=== PATIENT | female | born 1945 | race Caucasian/White ===

== ENCOUNTER 2024-07-04 08:01 | Inpatient (IN) | payer MEDICARE, SELFPAY ==
[2024-07-04] VITALS (23 sets, daily range): BP systolic 116–147; BP diastolic 44–85; PULSE 60–82; RESP 14–20; TEMP 36.4–37.1; O2SAT 92–100; BMI 27.5
--- NOTE | ~2024-07-04 | CT_ITS ---
CT brain wo con Ordering provider: Jevon Phillips III DO History: 79 years Female with . fall . Comparison: None. Technique: CT of the head without contrast. Radiation reduction technique utilized.The dose-length pr oduct was 605.33 mGy-cm. FINDINGS: BRAIN PARENCHYMA AND CSF SPACES: Left frontal encephalomalacia. No midline shift, mass effect or hemo rrhage. The brain parenchyma and CSF spaces are otherwise normal. Empty sella turcica. VISUALIZED PARANASAL SINUSES: Well aerated. MASTOIDS: Well aerated. BONES: Postoperative changes in the left frontal bone. Otherwise, The bones appear intact. SOFT TISSUES: Visualized nasopharynx is normal. Superficial soft tissues are normal. IMPRESSION: No acute intracranial findings. Reviewed, dictated and finalized at location A.
--- NOTE | ~2024-07-04 | CT_ITS ---
CT chest abdomen pelvis w con Ordering provider: Jevon Phillips III, DO History: . trauma . Comparison: None. Technique: CT chest, abdomen and pelvis with IV contrast only. Radiation reduction technique utilized .The dose-length product was 1203.89 mGy-cm. 100 mL Omnipaque 350 was given IV. FINDINGS: CHEST: --VISUALIZED THORACIC INLET: Normal. --MEDIASTINUM: Aorta/coronary arteries: Mild atheromatous disease. Heart/other: The heart is not enlarged. Lymph nodes: No mediastinal or hilar adenopathy. Precarinal lymph node measuring 2.2 x 0.8 cm is note d. Hilar lymph node is seen measuring 1.1 x 1.5 cm. --LUNGS: 2 nodules measuring 5 mm are seen in the right upper lobe area. 6 mm nodule in the left lowe r lobe is also noted. 4 mm nodule is seen in the left upper lobe. 6 mm nodule is seen in the lingula. 6 months follow-up CT is advised atelectatic changes seen in the middle lobe. Dependent atelectasis seen in the lower lobes more on the right side. No pulmonary masses. No infiltrates or effusions. No pneumothorax. --MUSCULOSKELETAL: Soft tissues: The superficial soft tissues are normal. Bones: Fracture of the right eighth, ninth, 10th and 11th ribs. Age appropriate degenerative changes of the spine. ABDOMEN/PELVIS: --MUSCULOSKELETAL: Bones: No acute fracture. Age appropriate degenerative changes of the spine. Superficial soft tissues: The superficial soft tissues are normal. --UPPER ABDOMINAL ORGANS: Liver: Normal. Lymph nodes are seen in the the amrita hepatis area and the largest measures 2.9 X 1.3x 3.5 CM. OTHER LYMPH NODES ARE SEEN IN MEASURING 2 cm AND 1.8 cm. Gallbladder: Not demonstrated most likely surgically removed. Spleen: Normal. Stomach/duodenum: Sliding hiatus hernia. Pancreas: Normal. Adrenals: The left adrenal gland is not seen most likely surgically removed.r possible fat-containing lesion in the right adrenal is not excluded measuring 1.3 cm. Tiny right adrenal adenoma is seen. Kidneys: Left kidney cyst is noted measuring 1.8 cm. --PELVIC ORGANS: The bladder is underfilled with thickened wall. --BOWEL AND MESENTERY: Colon: No evidence of diverticulitis. Presacral fat stranding is seen which may indicate proctitis. C linical correlation advised.. Appendix is not demonstrated. Small Bowel: Normal. No obstruction. Peritoneum/mesentery: No free air or free fluid. No mesenteric lymphadenopathy. --RETROPERITONEUM: Mild atheromatous disease of the abdominal aorta. No retroperitoneal hemorrhage o r aortic trauma. No retroperitoneal lymphadenopathy or retroperitoneal hemorrhage. IMPRESSION: CHEST: 1. No evidence of vascular injury seen. 2. No acute cardiopulmonary pathology. 3. Bilateral multiple nodules. 6 months follow-up CT advised. 4. Precarinal and right hilar lymph nodes. 5. Fracture of the right eighth, ninth, 10th and 11th ribs. ABDOMEN/PELVIS: 1. No evidence of solid organ injury seen. 2. No evidence of appendicitis, diverticulitis or intestinal obstruction. 3. Amrita hepatis lymphadenopathy. Reviewed, dictated and finalized at location A.
--- NOTE | ~2024-07-04 | XR_ITS ---
XR chest 2V Ordering provider: Jevon Phillips III, DO History: 79 years Female with . dizziness . Comparison: None. FINDINGS: MEDIASTINUM: The cardiac silhouette is not enlarged. LUNGS: No infiltrates, effusions or pneumothorax. Blunting of the posterior costophrenic angle on the right side which may indicate effusion or fibrotic changes. OTHER: No free air under the diaphragm. Degenerative changes of the spine. IMPRESSION: No acute cardiopulmonary pathology. Blunting of the posterior costophrenic angle on the right side which may be due to minimal effusion o r fibrotic changes. Reviewed, dictated and finalized at location A. IMPRESSION: No acute cardiopulmonary pathology. Blunting of the posterior costophrenic angle on the right side which may be due to minimal effusion or fibrotic changes.
--- NOTE | ~2024-07-04 | XR_ITS ---
EXAMINATION: XR chest 1V portable DATE: 07/05/2024 07:44 INDICATION: Rib fracture TECHNIQUE: frontal view of the chest was obtained. COMPARISON: Chest radiograph dated 07/04/2024 FINDINGS: Unchanged elevation the right hemidiaphragm. No focal airspace opacities, pulmonary edema, pleural ef fusion or pneumothorax. The cardiomediastinal silhouette is normal. Coronary artery stenting. Surgica l clip projecting over the left epigastric region. IMPRESSION: 1. Elevation right hemidiaphragm. No acute cardiopulmonary disease. Reviewed, dictated and finalized at location A.
--- NOTE | ~2024-07-04 | US_ITS ---
CAROTID ULTRASOUND Ordering provider: Armida Sibley APRN History: . Syncope/Fall . Comparison: None. Technique: Grayscale and color Doppler ultrasound examination of the carotid and vertebral artery sys tems bilaterally. Maximum peak systolic velocity (PSV) / end diastolic velocity (EDV) measurements we re obtained. FINDINGS: RIGHT: --Proximal COMMON CAROTID ARTERY: PSV is 92.5 cm/s. EDV is 15.5 cm/s. --Middle COMMON CAROTID ARTERY: PSV is 83.3 cm/s. EDV is 16.8 cm/s. --Distal COMMON CAROTID ARTERY: PSV is 89.9 cm/s. EDV is 15.1 cm/s. --EXTERNAL CAROTID ARTERY: PSV is 101.8 cm/s. --INTERNAL CAROTID ARTERY PROXIMAL: PSV is 65.8 cm/s. EDV is 15.3 cm/s. --INTERNAL CAROTID ARTERY MID: PSV is 54.8 cm/s. EDV is 14.2 cm/s. --INTERNAL CAROTID ARTERY DISTAL: PSV is 59.2 cm/s. EDV is 18.6 cm/s. --VERTEBRAL ARTERY: PSV is 56.7 cm/s. Antegrade flow with normal waveform. --SYSTOLIC ICA/CCA: 0.7 --ATHEROMATOUS DISEASE: Mild. LEFT: --Proximal COMMON CAROTID ARTERY: PSV is 67.4 cm/s. EDV is 12.2 cm/s. --Middle COMMON CAROTID ARTERY: PSV is 85.8 cm/s. EDV is 14.6 cm/s. --Distal COMMON CAROTID ARTERY: PSV is 92 cm/s. EDV is 13.4 cm/s. --EXTERNAL CAROTID ARTERY: PSV is 98.1 cm/s. --INTERNAL CAROTID ARTERY PROXIMAL: PSV is 67.4 cm/s. EDV is 14.6 cm/s. --INTERNAL CAROTID ARTERY MID: PSV is 87 cm/s. EDV is 17.1 cm/s. --INTERNAL CAROTID ARTERY DISTAL: PSV is 61.2 cm/s. EDV is 15.8 cm/s. --VERTEBRAL ARTERY: PSV is 37.3 cm/s. Antegrade flow with normal waveform. --SYSTOLIC ICA/CCA: 0.9 --ATHEROMATOUS DISEASE: Mild. --OTHER: None. IMPRESSION: 1. No significant stenosis seen bilaterally. 2. Antegrade flow demonstrated within both vertebral arteries. Reviewed, dictated and finalized at location A.
--- NOTE | 2024-07-04 08:29 | ECG_ITS ---
Test Date: 2024-07-04 08:39:19 Measurements Intervals Gantt Rate: 70 P: -7 IL: 162 QRS: 12 QRSD: 83 T: 51 QT: 399 QTc: 433 Interpretive Statements SINUS RHYTHM WITH SINUS ARRHYTHMIA NONSPECIFIC T-WAVE ABNORMALITY No previous ECG available for comparison Electronically Signed On 07-04-2024 12:43:44 CDT by Pauline Melendez M.D.
[2024-07-04 08:44] LABS: Basophils Percent Auto 0.2 % (0.2-1.2); Eosinophils Absolute Auto 0.1 K/mm3 (0-0.3); Eosinophils Percent Auto 1.3 % (0-4.4); Hemoglobin 11.1 g/dL (12.0-15.0); Immature Granulocyte Absolute 0.03 K/mm3 (0.00-0.031); Immature Granulocyte Percent A 0.3 % (0-0.5); Lymphocytes Absolute Auto 1.16 K/mm3 (0.9-3.2); Lymphocytes Percent Auto 11.7 % (18.3-44.2); Mean Corpuscular HGB Conc 32.6 g/dl (32-36); Mean Corpuscular Volume 91.9 fl (80-100); Monocytes Absolute Auto 0.4 K/mm3 (0.1-0.6); Monocytes Percent Auto 3.9 % (2.6-8.5); Neutrophils Absolute Auto 8.2 K/mm3 (1.3-6.7); Neutrophils Percent Auto 82.6 % (45.5-73.1); Platelet Count Result 220 k/mm3 (150-375); Red Cell Distribution Width 13.9 % (11.5-14.5); White Blood Count 9.9 K/mm3 (4.5-10.0)
[2024-07-04 09:04] LABS: Alanine Aminotransferase 77 U/L (6-35); Albumin Level 4.3 g/dL (3.5-5.1); Alkaline Phosphatase 106 U/L (38-126); Anion Gap 7 mmol/L (4-12); Aspartate Amino Transferase 91 U/L (14-36); Bilirubin,Total 0.7 mg/dL (0.2-1.3); Blood Urea Nitrogen 24 mg/dL (7-17); Calcium 9.2 mg/dL (8.4-10.2); Carbon Dioxide 26 mmol/L (22-30); Chloride 95 mmol/L (98-107); Estimated CRCL calculation 46 ml/min; Estimated Glomerular Filt Rate > 60; Glucose 230 mg/dL (65-110); Potassium 5.3 mmol/L (3.4-5.0); Sodium 128 mmol/L (137-145)
[2024-07-04 09:11] LABS: Add Urine Microscopic? YES; Appearance Urine Clear (Clear); Bacteria Urine None Seen /hpf; Bilirubin Urine Negative (Negative); Blood Urine 3+ (Negative); Color Urine Yellow (Yellow); Glucose Urine UA 1+ mg/dL (Negative); Ketones Urine Negative (Negative); Leukocyte Esterase Ur Negative LEU/UL (Negative); Nitrate Urine Negative (Negative); Non Pathogenic Casts 0-2; Protein Urine Trace mg/dL (Negative); RBC Urine >100 /hpf (0-2); Specific Grav Ur 1.021 (1.001-1.035); Squamous Epithelial Cell Urine None Seen /hpf (Few); WBC Urine 0-5 /hpf (0-3)
--- OUTSIDE RECORDS SUMMARY | 2024-07-04 09:43 | XMS_ITS | Encounter Summary ---
Author Organization [facility] Address [address] [place] [address] Care Team Providers Care Appliance Servicer Name Role Phone Tolu Arndt M.D. Primary Care Provide r Reason for Referral * Outpatient (Routine) - Closed Specialty Diagnoses / Procedures Referred By Yuri castillo Referred To Contact Diagnoses Fracture Clavicle Acromial Displaced Closed Initial Right Procedures DX Clavicle Right 2 Views Manjit Wakefield M.D. [address] [place] [phone] Phone: tel: fax: [facility] Region Referral ID Status Reason Start Date Expiration Date Visits Re quested Visits Authorized [id number] Closed 06/18/2024 09/18/2025 1 1 Encounter Details Date Type Department Care Team (Late st Contact Info) Description 06/18/2024 Orders Only Department of Orthopedic Surgery in [address] [phone] Manjit Wakefield M.D. [address] [place] [phone] Fracture Clavicle Acromial Displaced Closed Initial Right (Primary Dx) Social History Tobacco Use Types Packs/Day Years Used Date Smoking Tobacco: Never Smokeless Tobacco: Never Alcohol Use Standard Drinks/Week Comments Never 0 (1 standard drink = 0.6 oz pur e alcohol) [facility] Utilities Answer Date Recorded In the past 12 months has e electric, gas, oil, or water company threatened to shut off services in your home? No 02/20/2024 Humiliation, Afraid, Rape, and Kick questionnair e Answer Date Recorded Within the last year, have y ou been afraid of your partner or ex-partner? No 07/26/2023 Within the last year, have y ou been humiliated or emotionally abused in other ways by your partner or ex-partner? No Within the last year, have y ou been kicked, hit, slapped, or otherwise physically hurt by your partner or ex-partner? No 07/26/2023 Within the last year, have y ou been raped or forced to have any kind of sexual activity by your partner or ex-partner? No 07/26/2023 Social Connection and Isolat ion Panel [NHANES] Answer Date Recorded In a typical week, how many times do you talk on the phone with family, friends, or neighbors? More than three times a week 01/17/2022 How often do you get togethe r with friends or relatives? Twice a week 01/17/2022 How often do you attend [facility] or adventist services? More than 4 times per year 01/17/2022 Do you belong to any clubs o r organizations such as episcopal groups, unions, fraternal or athletic groups, or school groups? No 01/17/2022 How often do you attend meet ings of the clubs or organizations you belong to? Never 01/17/2022 Are you , , di vorced, , never , or living with a partner? 01/17/2022 AUDIT-C Answer Date Recorded Q1: How often do you have a drink containing alcohol? Never 01/17/2022 Q2: How many drinks containi ng alcohol do you have on a typical day when you are drinking? Patient does not drink Q3: How often do you have si x or more drinks on one occasion? Never 01/17/2022 Overall Financial Resource Strain (CARDIA) Answe r Date Recorded How hard is it for you to pa y for the very basics like food, housing, medical care, and heating? Not very hard 01/22/2023 PHQ-2 Answer Date Recorded PHQ-2 Score 0 05/26/2024 [facility] - Occupational Stress Questionnaire Answer Date Recorded Do you feel stress - tense, restless, nervous, or anxious, or unable to sleep at night because your mind is troubled all the time - these days? Very much 01/17/2022 Exercise Vital Sign Answer Date Recorde d On average, how many days pe r week do you engage in moderate to strenuous exercise (like a brisk walk)? 1 day 02/20/2024 On average, how many minutes do you engage in exercise at this level? 40 min 02/20/2024 Hunger Vital Sign Answer Date Recorded Within the past 12 months, y ou worried that your food would run out before you got the money to buy more. Never true 02/19/19 25 Within the past 12 months, t he food you bought just didn't last and you didn't have money to get more. Never true 02/20/2024 PRAPARE - Transportation Answer Date Re corded In the past 12 months, has l ack of transportation kept you from medical appointments or from getting medications? No 09/2024 In the past 12 months, has l ack of transportation kept you from meetings, work, or from getting things needed for daily living? No 02/20/2024 Depression Answer Date Recor ded PHQ-9 Total Score (max 27) 6 05/26 Nutrition Answer Date Recorded On average, how many serving s of fruits and vegetables do you eat per day (serving size is equal to 1 cup or approximately the size of a tennis ball)? 3-5 02/20/2024 Dental Answer Date Recorded Dental: Regular Dentist Yes 06/05/19 Employment Answer Date Recorded Employment status Retired 02/20/2024 Housing Stability Answer Date Recorded What is your living situation today? [place] [address] [place] live 02/20/2024 Education Answer Date Recorded What is the highest level of school you have completed or the highest degree you have received? 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 [address] [place] [phone] 08/22/2024 12:00 PM CDT Appointment Department of Laboratory Medicine, [facility], [address] [phone] Tolu Arndt M.D. [address] [place] [phone] 08/25/2024 9:00 AM CDT Office Visit Department of Internal Medicine in [address] [phone] Tolu Arndt M.D. [address] [place] [phone] Discharge Disposition: Home or Self Care documented as of this encounter Goals Goal Patient Goal Type Associated Problems Recent Progress Patient-Stated? Author Eat a balanced, healthy diet Diet Yes Lenore Magana, C.N.P., D.N.P., A.P.N.P. Note: So that she can continue to lead a healthy life independently. documented as of this encounter Results * DX Clavicle Right 2 Views (06/25/2024 1:22 PM CDT) Anatomical Region Laterality Modality Upper Extremity, Clavicle, M usculoskeletal RST LOS, Musculoskeletal ARZ LOS, Muskuloskeletal FLA LOS Right Digit al Radiography Impressions 06/25/2024 1:26 PM CDT Unchanged alignment of the mildly displaced fracture of the distal right clavicle with persistent superior displacement of the distal fracture fragment. The glenohumeral joint appears maintained. Soft tissues are unremarkable. Visualized lungs are clear. Narrative 06/25/2024 1:26 PM CDT EXAM: DX CLAVICLE RIGHT 2 VIEWS COMPARISON: 06/14/2024 Procedure Note Patrice Juarez M.D. - 06/25/2024 EXAM: DX CLAVICLE RIGHT 2 VIEWS COMPARISON: 06/14/2024 IMPRESSION: Unchanged alignment of the mildly displaced fracture of the distal rightclavicle with persistent superior displacement of the distal fracturefragment. The glenohumeral joint appears maintained. Soft tissues areunremarkable. Visualized lungs are clear. Manjit Wakefield M.D. IMG DIAGNOSTIC IMAGING PRO CEDURES Final Result documented in this encounter Visit Diagnoses Diagnosis Fracture Clavicle Acromial Displaced Closed Initial Right- Primary Fracture Clavicle Acromial Displaced Closed Initial Right documented in this encounter Additional Health Concerns Assessment Noted Time PHQ-9 Depression Total Score: 6 05/27/19 25 10:14 AM CDT documented as of this encounter Care Teams Appliance Servicer Relationship Specialty Start Date End Date Tolu Arndt M.D. [address] [place] [phone] PCP - General Internal Medicine 11/16/20 documented as of this encounter
--- OUTSIDE RECORDS SUMMARY | 2024-07-04 09:44 | XMS_ITS | Clinical Summary ---
Author Organization [facility] Address [address] [place] [address] Care Team Providers Care Dining Service Worker Name Role Phone Tolu Arndt M.D. Primary Care Provide r Source Comments Patient records contain information from all sites at [facility]. For routine questions regarding patient records, call [phone] during business hours, M-F 8:00 AM - 5:00 PM Central Time. Record requests for emergency care only can be directed to [phone] at any time.[facility] Allergies Active Allergy Reactions Criticality Noted Date Comments Hydrochlorothiazide Renal Failure Medium 08/15/2016 Hyponatremia Metformin Angioedema (Reselect Reaction) Medium 09/07/2016 Strange feeling in mouth and throat with ER FORM ONLY. Immediate release is tolerated. Medications * This document contains information received from the source organization and may not represent a complete record from that organization. aspirin 81 mg capsule Take 1 tablet by mouth daily. 8 Active CALCIUM CARB/VIT D3/MINERALS (CALCIUM-VITAMI N D ORAL) Take 1 tablet by mouth daily. 6 Active alum-mag hydroxide-simet h (MAALOX ADVANCED) 200-200-20 mg/5 mL suspension Take 30 mL by mouth every 6 (six) hours as needed for indigestion or heartburn. 354 mL 9 Active amLODIPine (NORVASC) 5 mg tablet take 1 tablet at bedtime 90 tablet 3 4 Active levothyroxine 50 mcg tablet take 1 tablet every day 90 tablet 3 4 Active magnesium oxide (Mag-Ox) 400 mg (241.3 mg magnesium) tablet Take 1 tablet (400 mg total) by mouth 2 (two) times a day before morning and evening meals. 180 tablet 3 4 Active sertraline (Zoloft) 100 mg tablet Take 2 tablets (200 mg total) by mouth daily. 180 tablet 3 4 Active glimepiride (AmaryL) 1 mg tablet TAKE 1 TABLET EVERY DAY WITH BREAKFAST 90 tablet 3 4 Active lisinopriL 20 mg tablet Take 1 tablet (20 mg total) by mouth daily. 90 tablet 3 5 Active metoprolol tartrate (Lopressor) 25 mg tablet TAKE 1 TABLET TWICE DAILY 180 tablet 3 5 Active blood sugar diagnostic strips (FreeStyle Lite Strips) 1 test daily. 100 strip 3 5 Active atorvastatin (Lipitor) 20 mg tablet Take 1 tablet (20 mg total) by mouth at bedtime. 90 tablet 3 5 Active metFORMIN (Glucophage) 500 mg tablet Take 1 tablet (500 mg total) by mouth 2 (two) times a day with meals. 180 tablet 3 5 Active Active Problems Problem Noted Date Diagnosed Date Nodule Thyroid 06/14/2024 Overview (06/14/2024): Indeterminate nodule incidentally noticed 06/14/2024. Recommend nonurgent, outpatient thyroid ultrasound Hypomagnesemia 05/30/2024 Assessment & Plan (05/30/2024 10:48 AM CDT): Her magnesium level has improved. Metformin is a potential cause of hypomagnesemia. As her diabetes is well controlled I will decrease metformin to 500 mg twice daily. She should stay on her present magnesium oxide supplementation. She had a diarrheal illness. The cause of this is not clear. She could have had a gastroenteritis however metformin and magnesium supplementation certainly could cause diarrhea as well but she has had no diarrhea now for 6 days. She does have a low PTH the significance of which is unclear. I will recheck PTH along with magnesium and ionized calcium in 6 weeks. Orders: Magnesium; Future Parathyroid Hormone (PTH); Future Calcium, Ionized; Future Nodule Pulmonary 06/06/2022 Cancer Colon Family History 12/12/2021 Overview (12/12/2021): Added automatically from request for surgery [id number] Gastroesophageal Reflux Disease 01/21/2020 Overview (01/21/2020): PH study 2018 pH less 4.0 for 45% study. No esophagitis seen on EGD Meningioma Brain Personal History 11/22/2017 Overview (11/22/2017): S/P pituitary meningioma resected 1995. Polyp Colon Adenomatous Personal History 017 Overview (11/22/2017): Added automatically from request for surgery [id number] Hyperplastic polyp removed 2016. Diabetes Mellitus Type 2 Wit h Other Circulatory Complication 09/01/2016 Assessment & Plan (05/30/2024 10:48 AM CDT): Decrease dose of metformin as above. Following up in August with repeat A1c Assessment & Plan (02/25/2024 4:11 PM PARADI OPERATOR): A1c is assessed. She continues on metformin therapy. Depending on A1c results I may reduce metformin as well given hypomagnesemia Orders: Hemoglobin A1c; Future Hemoglobin A1c; Future Basic Metabolic Panel; Future Hypertensive Heart Disease Without Heart Failure 07/16/2015 Overview (07/04/2016): Hypertension (HTN) NOS Hypothyroidism 07/16/2015 Tachycardia Supraventricular Paroxysmal 09/20/19 14 Overview (07/04/2016): Tachycardia Supraventricular Paroxysmal (PSVT) Assessment & Plan (05/30/2024 10:48 AM CDT): No recent occurrences. Ischemic Heart Chronic Disease 09/19/2013 Overview (11/22/2017): Coronary Artery Disease (CAD) Chronic NSTEMI 2005 with PTCA and stent to LAD 2004. Hyperlipidemia 02/22/2008 Resolved Problems Problem Noted Date Diagnosed Date Resolved Date Bronchitis Chronic Simple 04/04/2023 Family Circumstance 06/20/2022 02/24/19 25 Lymphadenopathy 06/06/2022 01/25/2023 Anxiety 01/20/2022 01/25/2023 Screening Cancer Colon 12/12/202106/06 Overview (12/12/2021): Added automatically from request for surgery [id number] [place]'s Syndrome 01/21/2020 4 Overview (01/21/2020): S/P unilateral adrenalectomy 1988. 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 03/04/2018 11/25/2018 Overview (03/04/2018): Added automatically from request for surgery [id number] Age Related Nuclear Cataract Right Eye 03/04/2018 11/25/2018 Overview (03/04/2018): Added automatically from request for surgery [id number] 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 01/21/2020 Overview (11/22/2017): S/P L adrenalectomy for [place]'s Syndrome 1988 Screening Colon Cancer Average Risk 11/22/2016 11/22/2017 Overview (11/22/2016): Added automatically from request for surgery [id number] Chronic Kidney Disease Stage 3 Glomerular Filtration Rate 30 To 59 07/16/2015 11/22/2016 Overview (07/04/2016): Chronic Kidney Disease (CKD) Stage 3 GFR 30-59 Osteopenia 07/16/2015 01/21/2020 Overview (08/15/2016): at the hip Diabetes Mellitus Type 2 Hyp oglycemia Without Coma 07/02/2015 11/22/2016 Overview (07/04/2016): Diabetes Mellitus Type 2 Hypoglycemia Without Coma Adrenal Gland Disorder 04/12/201501/20 Diabetes Mellitus Type 2 02/22/200810/2019 Overview (07/04/2016): Diabetes mellitus II, controlled, Encounters Date Type Department Care Team Description 06/25/2024 2:00 PM CDT Comprehensive Visit Department of Orthopedic Surgery in [address] [phone] Manjit Wakefield M.D. Fracture Clavicle Acromial Displaced Closed Initial Right Discharge Disposition: Home or Self Care 06/25/2024 1:01 PM CDT - 06/25/2024 11:59 PM CDT Hospital Encounter Department of Radiology, [facility], in [address] [phone] Manjit Wakefield M.D. Fracture Clavicle Acromial Displaced Closed Initial Right Discharge Disposition: Home or Self Care 06/18/2024 Orders Only Department of Orthopedic Surgery in [address] [phone] Manjit Wakefield M.D. Fracture Clavicle Acromial Displaced Closed Initial Right (Primary Dx) 06/14/2024 5:43 PM CDT - 06/14/2024 8:40 PM CDT Emergency [facility] [address] [place] [phone] Florinda Mcginnis M.D. Fracture Clavicle Acromial Displaced Closed Initial Right (Primary Dx) Discharge Disposition: Home or Self Care 05/30/2024 10:00 AM CDT Office Visit Department of Internal Medicine in [address] [phone] Tolu Arndt M.D. Diabetes Mellitus Type 2 With Other Circulatory Complication (HCC) (Primary Dx); Hypomagnesemia; Tachycardia Supraventricular Paroxysmal (HCC) Discharge Disposition: Home or Self Care 05/27/2024 8:41 AM CDT - 05/27/2024 11:59 PM CDT Hospital Encounter Department of Radiology, [facility], in [address] [phone] Tolu Arndt M.D. Screening Mammogram Average Risk Patient Discharge Disposition: Home or Self Care 05/27/2024 8:30 AM CDT Office Visit Department of Internal Medicine in [address] [phone] Tolu Arndt M.D. Moe, Jerri J, R.NLion Annual Medicare Examination Return (Primary Dx) Discharge Disposition: Home or Self Care 05/27/2024 Refill Department of Internal Medicine in [address] [phone] Briana Laboy, R.NLion Med Refill 05/26/2024 11:40 AM CDT - 05/26/2024 11:59 PM CDT Hospital Encounter Department of Laboratory Medicine, [facility], in [address] [address] Tolu Arndt M.D. Hypomagnesemia Discharge Disposition: Home or Self Care 05/17/2024 Orders Only RST PCP [facility] MNT Tolu Arndt M.D. Diabetes Mellitus Type 2 With Other Circulatory Complication (HCC) 04/21/2024 Results Follow-Up Department of Internal Medicine in [address] [address] Tolu Arndt M.D. Parathyroid Hormone (PTH) 04/21/2024 Refill Department of Internal Medicine in [place], [place] [address] [place] [address] Tolu Arndt M.D. Med Refill from Last 3 Months Immunizations Immunization Administration Dates Next Due H1N1 Inj Preservative Free 12/31/2008 Influenza high dose QV(65 ye ars or older) (PF) 12/13/2020 Influenza, Quadrivalent, Adj uvanted, Preservative Free 12/30/2022,12/04/2021 Influenza, Seasonal, Injectable 11/14/19 15,11/11/2012,12/18/2011,2010,11/22/2009,11/23/2008,12/18/2006,1 02/13/2005,12/09/2004,12/11/2003, 003,12/10/2001,12/21/1998 Influenza, Unspecified 12/08/2015,2013,12/16/2007,2005,12/09/2004,12/11/2003,12/19/2002 PCV13 11/04/2015,05/29/2014 PPSV23 01/10/2010,12/25/2002,12/21/1998 SARS-COV-2 (COVID-19) - PFIZ ER (Discontinued)(12 years or older) 01/11/2021,05/04/2020,04/13/2020 SARS-COV-2 (COVID-19) - PFIZ ER BIVALENT TS(Discontinued)(12 YEARS OR OLDER) 01/20/2022 SARS-COV-2 (COVID-19) - PFIZ ER TS(Discontinued)(12 years or older) 07/21/2021 Td (Adult), adsorbed 05/31/1995,02/12/1995 Td Preservative Free (TENIVA C, DECAVAC) 11/07/2014,01/10/2010 influenza trivalent LAIV (Na isabella) (2 years through 49 years) 12/18/2006 influenza trivalent high dos e (HD)(PF) 12/10/2023,11/25/2018,11/22/2017,2016,12/08/2015 influenza vaccine QV(FLUBLOK ) (18 years or older) (PF) 11/21/2019 Family History Medical History Relation Name Comments Alcohol abuse Brother 1 Erlin Christensen Jr Alzheimer's disease Brother 1 Erlin Christensen Jr Colonic polyp Brother 1 Erlin Christensen Jr Colon cancer Brother 2 Faizan Christensen 2009 Seizures Brother 4 Alcohol abuse Brother 5 Renato Christensen Jr Colon cancer Brother 6 Faizan Fermin 2009 ALS 2010 Hypertension Brother 6 Faizan Fermin 2009 ALS Hypertension Brother 7 Rachael Fermin Transient ischemic attack Brother 7 Rachael Fermin Colon polyps Daughter 1 Armida Johnson Migraines Daughter 1 Armida Johnson Colon polyps Daughter 2 Armida Johnson Migraines Daughter 2 Armida Johnson Alcohol abuse Father 1 Ed Fermin,Sr Alcoholic Father 1 Ed Fermin,Sr Alcohol abuse Father 2 Ed Fermin,Sr Alcoholic Father 2 Ed Fermin,Sr Cancer Mother 1 Gita Christensen Colorectal canc er Cataracts Mother 1 Gita Christensen Colon cancer Mother 1 Gita Christensen 1957 Hypertension Mother 1 Gita Christensen Cancer Mother 2 Gita Fermin Cataracts Mother 2 Gita Fermin Colon cancer Mother 2 Gita Fermin 1957 Hypertension Mother 2 Gita Christensen Diabetes Mother's Brother Mateo Cooper Diabetes Mother's Sister Coty Baltazar Ulcerative colitis Son 1 Iain Tyler grandson Amblyopia Neg Hx Glaucoma Neg Hx Macular degeneration Neg Hx Retinal detachment Neg Hx Strabismus Neg Hx Relation Name Status Comments Brother 1 Erlin Christensen Jr Brother 2 Faizan Christensen Brother 3 Renato FerminJr. Brother 4 Brother 5 Renato Jr Fermin Brother 6 Faizan Christensen 2009 ALS Brother 7 Rachael Fermin Brother 8 Rachael Fermin Daughter 1 Armida Johnson Daughter 2 Armida Johnson Alive Father 1 Ed Fermin,Sr Father 2 Ed Fermin,Sr Mother 1 Gita Christensen Mother 2 Gita Christensen Alive Mother's Brother Mateo Cooper Mother's Sister Coty Baltazar Son 1 Iainricco GusmanJayson Son 2 Efren Tyler Alive Social History Tobacco Use Types Packs/Day Years Used Date Smoking Tobacco: Never Smokeless Tobacco: Never Tobacco Cessation:Counseling Given: Not Answered Alcohol Use Standard Drinks/Week Comments Never 0 (1 standard drink = 0.6 oz pur e alcohol) [facility] Utilities Answer Date Recorded In the past 12 months has th e electric, gas, oil, or water company [...] week 01/17/2022 How often do you attend [facility] or jewish services? More than 4 times per year 01/17/2022 Do you belong to any clubs o r organizations such as uatsdin groups, unions, fraternal or athletic groups, or [...] Answer Date Recorded PHQ-2 Score 0 05/26/2024 [facility] of Occupat ional [facility] - Occupational Stress Questionnaire Answer Date Recorded [...] Date Recorded Dental: Regular Dentist Yes 06/05/19 21 Employment Answer Date Recorded Employment status Retired 02/20/2024 Housing Stability Answer Date Recorded What is your living situation today? I have a [facility] place to live 02/20/2024 Education Answer Date Recorded What is the highest level of school you have completed or the highest degree you have received? 12th grade 08/02/2018 Comments No Sex and Gender Information Value Date Recorded Sex Assigned at Female 01/05/2021 12:55 PM PARADI OPERATOR Legal Sex Female 1:55 AM PARADI OPERATOR Gender Identity Female Sexual Orientation Straight Occupation Industry Job Start Date Job End Date Not on file Not on file Not on file Not on file Last Filed Vital Signs Vital Sign Reading Time Taken Comments Blood Pressure 132/103 06/14/2024 5:40 PM CDT Pulse 59 06/14/2024 5:40 PM CDT Temperature 35.7 C (96.3 F) 06/14/2024 5:40 PM CDT Respiratory Rate 18 06/14/2024 5:40 PM CDT Oxygen Saturation 99% 06/14/2024 5:40 PM CDT Inhaled Oxygen Concentration - - Weight 73 kg (161 lb) 06/14/2024 5:42 PM CDT Height 164.5 cm (5' 4.76 ) 05/30/2024 10:01 AM C DT Body Mass Index 26.99 05/30/2024 10:01 AM CDT Plan of Treatment Upcoming Encounters Date Type Department Care Team (Late st Contact Info) Description 07/11/2024 8:50 AM CDT Appointment Department of Laboratory Medicine, [facility], [address] [address] Tolu Arndt M.D. [address] [place] [phone] 08/22/2024 12:00 PM CDT Appointment Department of Laboratory Medicine, [facility], [address] [phone] Tolu Arndt M.D. [address] [place] [phone] 08/25/2024 9:00 AM CDT Office Visit Department of Internal Medicine in [address] [phone] Tolu Arndt M.D. [address] [place] [phone] Discharge Disposition: Home or Self Care Health Maintenance Due Date Last Done Comments CT Colonography 1944 Cologuard 1944 Zoster Vaccines (1 of 2) 1994 Hepatitis B Vaccines (1 of 3 - Risk 3-dose series) 2004 DTaP,Tdap,and Td Vaccines (1 - Tdap) 11/08/2014 11/07/2014, 01/10/2010, 05/31/1995, Additional history exists Diabetes Education 07/26/2016 09/07/2015 RSV vaccine - (32-36 weeks) or 60+ years (1 - 1-dose 75+ series) 2019 COVID-19 Vaccine ( season) 2023 01/20/2022, 07/21/2021, 01/11/2021, Additional history exists Dilated Eye Exam 03/22/2024 03/22/2023, , 09/22/2019, Additional history exists Urine Albumin 07/25/2024 07/26/2023, 08/2022, 01/19/2020, Additional history exists Hemoglobin A1C 08/24/2024 02/25/2024, 11/13, 07/26/2023, Additional history exists Creatinine Level (Kidney Function Test) 02/24/2025 02/25/2024, 07/23/2023, 01/22/2023, Additional history exists Diabetic Office Visit with Foot Exam 02/24/2025 02/25/2024, 05/23/2018, 05/23/2018, Additional history exists Potassium Level 02/24/2025 02/25/2024, 07/13, 01/22/2023, Additional history exists Sodium Level 02/24/2025 02/25/2024, 07/13, 01/22/2023, Additional history exists Thyroid Stimulating Hormone (TSH) test for thyroid function 02/24/2025 02/25/2024, 12/10/2023, 01/22/2023, Additional history exists Visit: Medicare Annual Wellness 05/28/2025 05/27/2024, 11/22/2021 Office Visit for Blood Pressure Check / Re-check 05/30/2025 05/30/2024 Visit: Chronic Disease, age 18+ 05/30/2025 05/30/2024, 02/25/2024 Colonoscopy 04/14/2027 04/13/2022, 01/12, 01/22/2017, Additional history exists Colorectal Cancer Surveillance 04/14/2027 Pneumococcal vaccine (50+ years) Completed 11/04/2015, 05/29/2014, 01/10/2010, Additional history exists Influenza Vaccine Completed 12/10/2023, , 12/04/2021, Additional history exists Fall Risk Screen (Annual) Completed 05/27/2024 Mammogram Discontinued 05/27/2024, 04/13, 05/08/2022, Additional history exists Depression Screening (Annual PHQ-2) Completed 05/30/2024, 02/25/2024 IPV Vaccines Aged Out No longer eligi ble based on patient's age to complete this topic Goals Goal Patient Goal Type Associated Problems Recent Progress Patient-Stated? Author Eat a balanced, healthy diet Diet Yes Lenore Magana, C.N.P., D.N.P., A.P.N.P. Note: So that she can continue to lead a healthy life independently. Medical Devices Implanted Type Area Well Logging Captain Device Identifier Shelf Expiration Date Model / Serial / Lot Lens Acr Sn60wf Post +21.5d - [id number] - [id number] Implanted:Qty : 1 on 03/13/2018 by Thomas Mondragon M.D. at [facility] Ocular Lens [employer] 11/11/2022 SN60WF.21 5 / [id number] / Lens Acr Sn60wf Post +22.0d - [id number] - [id number] Implanted:Qty : 1 on 06/05/2018 by Thomas Mondragon M.D. at [facility] Ocular Lens Right: Eye [employer] 02/11/2023 SN60WF.22 0 / [id number] / Stent Other Stent Other Heart Procedures Procedure Name Priority Date/Time Associated Diagnosis Comments DX CLAVICLE RIGHT 2 VIEWS RAD - Routine (most inpatients and all outpatients) 06/25/2024 1:22 PM CDT Fracture Clavicle Acromial Displaced Closed Initial Right DX SHOULDER RIGHT 2+ VIEWS RAD - Semiurgent (Fast; most ED patients; some inpatients) 06/14/2024 7:[address] CERVICAL SPINE WITHOUT IV CONTRAST RAD - Semiurgent (Fast; most ED patients; some inpatients) 06/14/2024 6:[address] HEAD WITHOUT IV CONTRAST RAD - Semiurgent (Fast; most ED patients; some inpatients) 06/14/2024 6:36 PM CDT BI BREAST SCREENING BILATERAL WITH TOMOSYNTHESIS RAD - Routine (most inpatients and all outpatients) 05/27/2024 9:35 AM CDT Screening Mammogram Average Risk Patient MAGNESIUM, S Routine 05/26/2024 12:13 PM CDT Hypomagnesemia HEMOGLOBIN A1C, B Routine 02/25/2024 4:2 4 PM PARADI OPERATOR Diabetes Mellitus Type 2 With Other Circulatory Complication (HCC) THYROID FUNCTION CASCADE, S Routine 02/25/2024 1:11 PM PARADI OPERATOR Anemia BASIC METABOLIC PANEL, S/P Routine 02/25/2024 1:11 PM PARADI OPERATOR Anemia ALBUMIN, RANDOM, U Routine 07/26/2023 11:47 AM CDT Diabetes Mellitus Type 2 With Other Circulatory Complication (HCC) COLONOSCOPY 04/13/2022 11:52 AM PARADI OPERATOR OPHTHALMOLOGY IMAGE EXAM Routine 09/10/2015 9:43 AM CDT from Last 3 Months or Most Recently Relevant to Health Maintenance Results * DX Clavicle Right 2 Views [...] Visualized lungs are clear. Manjit Wakefield M.D. IM DIAGNOSTIC IMAGING PRO CEDURES Final Result * DX Shoulder Right 2+ Views (06/14/2024 7:02 PM CDT) Anatomical Region Laterality Modality Upper Extremity, Shoulder, M usculoskeletal RST LOS, Musculoskeletal ARZ LOS, Muskuloskeletal FLA LOS Right Digit al Radiography Impressions 06/14/2024 7:23 PM CDT Normal glenohumeral alignment. No acute proximal humerus fractures. Acute, mildly displaced distal right clavicle fracture with approximately 7 mm superior displacement of the distal fracture fragment relative to the proximal fracture fragment. Mild glenohumeral and acromioclavicular degenerative changes. Narrative 06/14/2024 7:23 PM CDT EXAM: DX SHOULDER RIGHT 2+ VIEWS Procedure Note Tolu Beauchamp M.D. - 06/14/2024 EXAM: DX SHOULDER RIGHT 2+ VIEWS IMPRESSION: Normal glenohumeral alignment. No acute proximal humerus fractures. Acute,mildly displaced distal right clavicle fracture with approximately 7 mmsuperior displacement of the distal fracture fragment relative to theproximal fracture fragment. Mild glenohumeral and acromioclavicular degenerative changes. Florinda Mcginnis M.D. IMLeif DIAGNOSTIC IMAGING PROCE SHERIE Final Result * CT Cervical Spine without IV Contrast (06/14/2024 6:36 PM CDT) Anatomical Region Laterality Modality Cervical Spine, Neuroradiolo gy RST LOS, Neuroradiology ARZ LOS, Neuroradiology FLA LOS N/A Computed Tomography 06/14/2024 6:32 PM CDT Impressions 06/14/2024 7:04 PM CDT 1. No acute fractures or traumatic subluxation within the cervical spine. 2. Indeterminate 1.8 cm left thyroid nodule. Recommend nonemergent dedicated thyroid ultrasound for further evaluation if this has not been previously evaluated. Narrative 06/14/2024 7:04 PM CDT EXAM: CT CERVICAL SPINE WITHOUT IV CONTRAST COMPARISON: None FINDINGS: ALIGNMENT: Normal alignment. No traumatic listhesis. VERTEBRAL BODIES: No acute fractures. Vertebral body heights are maintained. FACETS/POSTERIOR ELEMENTS: No acute fractures or traumatic subluxation. DEGENERATIVE CHANGES: Mild multilevel degenerative changes without high-grade osseous spinal canal stenosis. CRANIOCERVICAL JUNCTION: Unremarkable. PREVERTEBRAL SOFT TISSUES: Unremarkable. NECK SOFT TISSUES: Indeterminate 1.8 cm left thyroid nodule.. IMAGED UPPER THORAX: Unremarkable. Procedure Note Tolu Beauchamp M.D. - 06/14/2024 EXAM: CT CERVICAL SPINE WITHOUT IV CONTRAST COMPARISON: None FINDINGS: ALIGNMENT: Normal alignment. No traumatic listhesis. VERTEBRAL BODIES: No acute fractures. Vertebral body heights aremaintained. FACETS/POSTERIOR ELEMENTS: No acute fractures or traumatic subluxation. DEGENERATIVE CHANGES: Mild multilevel degenerative changes withouthigh-grade osseous spinal canal stenosis. CRANIOCERVICAL JUNCTION: Unremarkable. PREVERTEBRAL SOFT TISSUES: Unremarkable. NECK SOFT TISSUES: Indeterminate 1.8 cm left thyroid nodule.. IMAGED UPPER THORAX: Unremarkable. IMPRESSION: 1. No acute fractures or traumatic subluxation within the cervicalspine. 2. Indeterminate 1.8 cm left thyroid nodule. Recommend nonemergentdedicated thyroid ultrasound for further evaluation if this has not beenpreviously evaluated. us Florinda Mcginnis M.D. [facility] CT PROCEDURES Final Resu lt * CT Head without IV Contrast (06/14/2024 6:36 PM CDT) Anatomical Region Laterality Modality Head, Neuroradiology RST LOS , Neuroradiology ARZ LOS, Neuroradiology FLA LOS N/A Computed Tomography 06/14/2024 6:29 PM CDT Impressions 06/14/2024 6:56 PM CDT No acute intracranial findings. Narrative 06/14/2024 6:56 PM CDT EXAM: CT HEAD WITHOUT IV CONTRAST COMPARISON: None FINDINGS: No intracranial hemorrhage, mass effect or acute infarct. No extra- axial fluid collections or hydrocephalus. Mild global cerebral and cerebellar volume loss. Patchy hypodensities in the deep white matter both frontal and parietal lobes, likely sequela of chronic small vessel ischemic disease. Chronic left frontal lobe encephalomalacia. Scattered intracranial vascular calcifications. Postoperative changes of left frontoparietal craniotomy. The paranasal sinuses and mastoid air cells are well-aerated. Postoperative changes of both globes. Procedure Note Gerardo Doe M.D. - 06/14/2024 EXAM: CT HEAD WITHOUT IV CONTRAST COMPARISON: None FINDINGS: No intracranial hemorrhage, mass effect or acute infarct. Noextra- axial fluid collections or hydrocephalus. Mild global cerebral andcerebellar volume loss. Patchy hypodensities in the deep white matter bothfrontal and parietal lobes, likely sequela of chronic small vessel ischemic disease. Chronic left frontallobe encephalomalacia. Scattered intracranial vascular calcifications.Postoperative changes of left frontoparietal craniotomy. The paranasalsinuses and mastoid air cells are well-aerated. Postoperative changes of both globes. IMPRESSION: No acute intracranial findings. us Florinda Mcginnis M.D. IM CT PROCEDURES Final Resu lt * BI Breast Screening Bilateral with Tomosynthesis (05/27/2024 9:35 AM CDT) Anatomical Region Laterality Modality Breast, Breast Imaging RST L OS, Breast Imaging ARZ LOS, Breast Imaging FLA LOS Bilateral Mammography Impressions 05/27/2024 9:40 AM CDT Negative. RECOMMENDATION: Annual Screening Mammogram ASSESSMENT: BI-RADS: 1: Negative. Narrative 05/27/2024 9:40 AM CDT EXAM: BI BREAST SCREENING BILATERAL WITH TOMOSYNTHESIS Current study was evaluated with a Computer Aided Detection (CAD) system. INDICATION: Screening mammogram. COMPARISON: Prior exam(s) were available and reviewed for comparison. DENSITY: b. There are scattered areas of fibroglandular density. FINDINGS: No mammographic findings of malignancy. Procedure Note Sree Mena M.D. - 05/27/2024 EXAM: BI BREAST SCREENING BILATERAL WITH TOMOSYNTHESIS Current study was evaluated with a Computer Aided Detection (CAD) system. INDICATION: Screening mammogram. COMPARISON: Prior exam(s) were available and reviewed for comparison. DENSITY: b. There are scattered areas of fibroglandular density. FINDINGS: No mammographic findings of malignancy. IMPRESSION: Negative. RECOMMENDATION: Annual Screening Mammogram ASSESSMENT: BI-RADS: 1: Negative. us Tolu Arndt M.D. IMG BI PROCEDURES Fin al Result * (ABNORMAL) Magnesium (05/26/2024 12:13 PM CDT) Magnesium, P 1.6(L) 1.7 - 2.3 mg/dL 05/26/2024 1:14 PM CDT ECLR Blood (Blood, Venous) 05/26/2024 12:13 PM CDT 05/26/2024 12:28 PM CDT us Tolu Arndt M.D. LAB BLOOD ADD-ON Mari l Result [facility] [address] [place] [id number], [facility] ECLR [facility] [address] [address] * (ABNORMAL) Hemoglobin A1c (02/25/2024 4:24 PM PARADI OPERATOR) [facility] Hemoglobin A1c, B 6.9(H) 4.2 - 5.6 % 02/25/2024 5:04 PM PARADI OPERATOR ECLR Comment: Hemoglobin A1c values greater than or equal to 6.5 percent are diagnostic for diabetes mellitus. Diagnosis should be confirmed by repeat testing. In diabetic patients, HbA1c goals should be discussed with healthcare provider. Blood (Blood, Venous) 02/25/2024 4:24 PM PARADI OPERATOR 02/25/2024 4:33 PM PARADI OPERATOR Tolu Arndt M.D. LAB BLOOD ADD-ON Mari l Result Performing Organization Address City/[facility]/ZIP Co de Phone Number [facility] [address] [place] [address] [address] * Thyroid Function [place] (02/25/2024 1:11 PM PARADI OPERATOR) [facility] TSH, Sensitive 2.4 0.3 - 4.2 mIU/L 02/25/2024 2:25 PM PARADI OPERATOR ECLR Blood (Blood, Venous) 02/25/2024 1:11 PM PARADI OPERATOR 02/25/2024 1:26 PM PARADI OPERATOR Anna Piedra C.N.P., A.P.N.P., R.N. LAB BLOOD ADD-ON Final Result Performing Organization Address City/[facility]/ZIP Co de Phone Number [facility] [address] [place] [address] [address] * (ABNORMAL) Basic Metabolic Panel (02/25/2024 1:11 PM PARADI OPERATOR) Potassium, P 4.7 3.6 - 5.2 mmol/L 02/25/2024 2:30 PM PARADI OPERATOR ECLR Sodium, P 136 135 - 145 mmol/L 02/25/2024 2:30 PM PARADI OPERATOR ECLR Chloride, P 98 98 - 107 mmol/L 02/25/2024 2:30 PM PARADI OPERATOR ECLR Bicarbonate, P 24 22 - 29 mmol/L 02/25/2024 2:30 PM PARADI OPERATOR ECLR Anion Gap, P 14 7 - 15 02/25/2024 2:30 PM PARADI OPERATOR ECLR BUN (Blood Urea Nitrogen), P 31(H) 6 - 21 mg/dL 02/25/2024 2:30 PM PARADI OPERATOR ECLR Creatinine 1.09(H) 0.59 - 1.04 mg/dL 02/25/2024 2:30 PM PARADI OPERATOR ECLR Estimated GFR (eGFR) 52(L) >=60 mL/min/BSA 02/25/2024 2:30 PM PARADI OPERATOR ECLR Comment: Estimated GFR calculated using the 2020 CKD_EPI creatinine equation. Calcium, Total, P 10.5(H) 8.8 - 10.2 mg/dL 02/25/2024 2:30 PM PARADI OPERATOR ECLR Glucose, P 207(H) 70 - 140 mg/dL 02/25/2024 2:30 PM PARADI OPERATOR ECLR Blood (Blood, Venous) 02/25/2024 1:11 PM PARADI OPERATOR 02/25/2024 1:26 PM PARADI OPERATOR Anna Piedra C.N.P., A.P.N.P., R.N. LAB BLOOD ADD-ON Final Result [facility] [address] [place] [id number], [facility] ECLR [facility] in [address] [address] * Albumin, Random, Urine (07/26/2023 11:47 AM CDT) Albumin, Random, U <5.0 mg/L 2023 12:54 PM CDT ECLR Comment: ----ADDITIONAL INFORMATION---- This test has been modified from the general car yard supervisor's instructions. Its performance characteristics were determined by [facility] in a manner consistent with CLIA requirements. This test has not been cleared or approved by the U.S. Food and Drug Administration. Creatinine 72 mg/dL 07/26/2023 12:54 PM CDT ECLR Albumin/Creatinine Ratio <7 <25 mg/g 07/26/2023 12:54 PM CDT ECLR Comment: This ratio may not correspond with the reference range because one or both of the values used to calculate the ratio was above or below the quantification limits. Urine (Urine, Midstream) 07/26/2023 11:47 AM CDT 07/26/2023 11:52 AM CDT us Tolu Arndt M.D. LAB URINE ORDERABLES Final Result [facility] [address] [place] [address], [facility] ECLR [facility] [place] [address] * COLONOSCOPY (04/13/2022 11:52 AM PARADI OPERATOR) Narrative Procedure Note Lawrence Morillo M.D. - 04/13/2022 11:52 AM CST [facility] GI Patient Name: Citlali Tyler Procedure Date: 04/13/2022 11:52 AM Date of : 1945 Age: 77 Gender: Female Procedure: Colonoscopy Providers: Lawrence Morillo MD, Tolu Arndt MD (Ordering Provider) Referring Provider: Tolu Arndt MD Pre-op Diagnoses: Screening for colorectal malignant neoplasm, Screening in patient at increased risk: Family history of 1st-degree relative with colorectal cancer before age 60 years Post-op Diagnoses: - Diverticulosis in the transverse colon and in the ascending colon. There was no evidence of diverticular bleeding. - Diverticulosis in the sigmoid colon and in the descending colon.There was no evidence of diverticular bleeding. - The distal rectum and anal verge are normal on retroflexion view. - No specimens collected. Recommendation: - Discharge patient to home (with escort). - Patient has a contact number available for emergencies. The signsand symptoms of potential delayed complications were discussed with the patient. Return to normal activities tomorrow. Written discharge instructions were provided to the patient. - High fiber diet. - Continue present medications. - Repeat colonoscopy in 5 years for screening purposes. Findings: The perianal and digital rectal examinations were normal. Pertinent negatives include no palpable rectal lesions and no anal lesion or abnormality. A few small and large-mouthed diverticula were found in thetransverse colon and ascending colon. There was no evidence of diverticular bleeding. Many small and large-mouthed diverticula were found in the sigmoidcolon and descending colon. There was no evidence of diverticularbleeding. No other significant abnormalities were identified in a careful examination of the remainder of the colon. The retroflexed view of the distal rectum and anal verge was normaland showed no anal or rectal abnormalities. Medicines: Monitored Anesthesia Care Estimated Blood Loss: Estimated blood loss: none. Complications: No immediate complications. Estimated blood loss: None. Procedure Details: The patient was seen, evaluated, and history reviewed. Airway and heart and lung exams were performed and were satisfactory for plannedsedation care. The risks, benefits and alternatives for the procedure and sedation were discussed andinformed consent was obtained. A procedural pause was conducted in the presence of assisting personnelto verify the correct patient identity and procedureto be performed. Throughout the procedure, the patient's blood pressure, pulse, and oxygen saturations were monitored continuously. The Colonoscope was introduced under directvision through the anus and advanced to the cecum, identified by appendiceal orifice and ileocecal valve. The colonoscopy was performed without difficulty. The patient tolerated the procedure well. The ileocecal valve, appendiceal orifice,and rectum were photographed. The entire colon was examined. The quality of the bowel preparationwas evaluated using the BBPS ([place] BowelPreparation Scale) with scores of: Right Colon = 3,Transverse Colon = 3 and Left Colon = 3 (entire mucosa seen well with no residual staining, small fragmentsof stool or opaque liquid). The total BBPS scoreequals 9. Moderate Sedation: Anesthesia was administered by an anesthesia professional. Total physician intraservice time is not applicable Lawrence Morillo MD 04/13/2022 11:55:55 AM This report has been signed electronically. Number of Addenda: 0 Note Initiated On: 04/13/2022 11:52 AM Tolu Arndt M.D. GI PROCEDURE ORDERABL ES Final Result * OPHTHALMOLOGY IMAGE EXAM (09/10/2015 9:43 AM CDT) Anatomical Region Laterality Modality Other 09/10/2015 9:43 AM CDT Addenda Addendum by ProviderMargarita M.D. on 09/10/2015 9:43 AM CDT OPH^^^EC NA 09/10/2015 09:43:07 Historical Provider IMG NON RAD IMAGING PROCEDUR ES Final Result from Last 3 Months or Most Recently Relevant to Health Maintenance Insurance MEDICARE [facility] Advance Directives For more information, please contact: [phone] Documents on File Type Date Recorded Patient Continuous Improvement Consultant Expl anation Advance Directives 10/07/2019 11:14 AM POA for Healthcare Advance Directives 03/11/2010 12:00 AM Leg acy document. See document viewer. Healthcare Agents on File Name Relationship Healthcare Agent Relationship Communication Efren Tyler Son First Alternate Health Care Agent Armida Johnson Daughter Second Alterna te Health Care Agent Care Teams Dining Service Worker Relationship Specialty Start Date End Date Tolu Arndt M.D. [address] [place] [address] PCP - General Internal Medicine 11/16/20
--- NOTE | 2024-07-04 09:55 | ED.FALL ---
HPI - Fall General Chief Complaint: Fall Stated Complaint: fall injuring right side hitting coffee table Time Seen by Provider: 07/04/24 08:27 History of Present Illness HPI Narrative: Pt lost balance and fell and struck right back and ribs on coffe tabloe and then struck head on carpeted floor. Pt denies LOC or neck pain. Pt has pain in right flank and lateral lower ribs. Pt noticed urine was pink. Related Data Home Medications ?Medication ?Instructions ?Recorded ?Confirmed ?Last Taken ?Type amlodipine 5 mg tablet 5 mg PO QPM 07/04/24 07/04/24 Unknown History atorvastatin 20 mg tablet 20 mg PO QPM 07/04/24 07/04/24 Unknown History blood sugar diagnostic (FreeStyle 07/04/24 07/04/24 Unknown History Lite Strips) glimepiride 1 mg tablet 1 mg PO DAILY 07/04/24 07/04/24 Unknown History levothyroxine 50 mcg tablet 50 mcg PO QAM 07/04/24 07/04/24 Unknown History lisinopril 20 mg tablet 20 mg PO .daily HS 07/04/24 07/04/24 Unknown History metformin 1,000 mg tablet 250 mg PO BID 07/04/24 07/04/24 Unknown History metoprolol tartrate 25 mg tablet 25 mg PO BID 07/04/24 07/04/24 Unknown History sertraline 100 mg tablet 100 mg PO QAM 07/04/24 07/04/24 Unknown History Allergies Allergy/AdvReac Type Severity Reaction Status Date / Time No Known Allergies Allergy Verified 07/04/24 08:02 Review of Systems Review of Systems: All systems reviewed & are unremarkable except as noted in HPI and below PMFSH Social History Social History Smoking status: Never smoker Alcohol intake: former Substance use: never Substance use type: does not use Do You Feel Safe in your Home?: Yes Lack of Transportation: No Lack of Food: Never True Current Housing: I Have Housing Concerned About Future Housing: No Difficulty Paying Gas/Electric Bills: No Difficulty Paying for Meds: No Currently Unemployed: No Education: Decline to Answer Difficulty w/ Childcare or Family Care: No Spiritual care concerns: No Exam Const: General: healthy appearing and no acute distress Nutritional Appearance: well nourished Orientation/consciousness: patient oriented x3 Limitations: no limitations HENMT: Head: normal to inspection Eyes: Conjunctivae: conjunctivae normal Pupils: Equal, round and reactive pupils present EOM: EOMs intact bilaterally Neck: Neck: normal visual inspection Other: no midline pain Chest: Other: tender lateral and posterior lower right ribs and right flank Resp: Effort & Inspection: normal respiratory effort Auscultation: clear to auscultation bilaterally Cardio: Rate: regular rate Rhythm: regular rhythm GI: Auscultation: normal bowel sounds Other: non tender Back/Spine/Pelvis: Back: CVA tenderness Skin: General skin exam: normal color Rashes: no rashes Wounds: no wounds Neuro: General: patient oriented x3, moves all extremities and no focal motor deficits Speech: normal speech Extrem: Other: sling in place shoulder from fall last month Psych: Mental Status: mental status grossly normal Affect: normal affect Course Vital Signs Vital signs: Vital Signs Pulse Rate 74 07/04/24 08:19 Respiratory Rate 16 07/04/24 08:19 Blood Pressure 147/69 H 07/04/24 08:19 Pulse Oximetry 100 07/04/24 08:19 Temperature 98.8 F 07/04/24 14:15 Pulse Rate 73 07/04/24 14:15 Respiratory Rate 17 07/04/24 14:15 Blood Pressure 122/44 L 07/04/24 14:15 Pulse Oximetry 98 07/04/24 14:15 Oxygen Delivery Room Air 07/04/24 17:58 MDM - Fall MDM Narrative Medical decision making narrative: Pt fell striking coffe table with right ribs and flank and now has pink urine. will need ct to rule out renal injury and also ct to check right ribs and will ct head as well and check some routine labs. Pt has hyponatremia which is new. Pt has fx's of 8-11th ribs does not appear to be multiple segments. discussed with Dr Bryan and will consult if needed. Discussed with Catina Yadav and agrees to admit. Lab Data 07/04/24 08:39 07/04/24 17:19 Labs: Lab Results 07/04/24 07/04/24 Range/Units 08:39 08:58 WBC 9.9 (4.5-10.0) K/mm3 RBC 3.70 L (4.2-5.4) M/mm3 Hgb 11.1 L (12.0-15.0) g/dL Hct 34.0 L (37.0-47.0) % MCV 91.9 (80-100) fl MCH 30.0 (26-34) pg MCHC 32.6 (32-36) g/dl RDW 13.9 (11.5-14.5) % Plt Count 220 (150-375) k/mm3 MPV 9.0 (7.4-10.4) fl Immature Gran % (Auto) 0.3 (0-0.5) % Neut % (Auto) 82.6 H (45.5-73.1) % Lymph % (Auto) 11.7 L (18.3-44.2) % [place] % (Auto) 3.9 (2.6-8.5) % Eos % (Auto) 1.3 (0-4.4) % Baso % (Auto) 0.2 (0.2-1.2) % Lymph # (Auto) 1.16 (0.9-3.2) K/mm3 [place] # (Auto) 0.4 (0.1-0.6) K/mm3 Eos # (Auto) 0.1 (0-0.3) K/mm3 Baso # (Auto) 0.0 (0.0-0.1) K/mm3 Abs Immat Gran (auto) 0.03 (0.00-0.031) K/mm3 Absolute Neuts (auto) 8.2 H (1.3-6.7) K/mm3 Absolute Nucleated RBC 0.000 (0.0-0.012) K/mm3 Nucleated RBC % 0.0 (0.0-0.2) % Sodium 128 L (137-145) mmol/L Potassium 5.3 H (3.4-5.0) mmol/L Chloride 95 L (98-107) mmol/L Carbon Dioxide 26 (22-30) mmol/L Anion Gap 7 (4-12) mmol/L BUN 24 H (7-17) mg/dL Creatinine 0.83 (0.7-1.0) mg/dL Estim Creat Clear Calc 46 ml/min Estimated GFR > 60 (59 - ) Glucose 230 H (65-110) mg/dL Calcium 9.2 (8.4-10.2) mg/dL Total Bilirubin 0.7 (0.2-1.3) mg/dL AST 91 H (14-36) U/L ALT 77 H (6-35) U/L Alkaline Phosphatase 106 (38-126) U/L Total Protein 7.0 (6.3-8.2) g/dL Albumin 4.3 (3.5-5.1) g/dL Urine Color Yellow (Yellow) Urine Appearance Clear (Clear) Urine pH 7.0 (5.0-9.0) Ur Specific Cut Off 1.021 (1.001-1.035) Urine Protein Trace (Negative) mg/dL Urine Glucose (UA) 1+ H (Negative) mg/dL Urine Ketones Negative (Negative) mg/dL Ur Blood (Man) 3+ H (Negative) Urine Nitrate Negative (Negative) Urine Bilirubin Negative (Negative) Urine Urobilinogen 1.0 (<2.0) mg/dL Leukocyte Esterase Rfl Negative (Negative) CHRISTOPHER/UL Urine RBC >100 H (0-2) /hpf Urine WBC 0-5 (0-3) /hpf Ur Squamous Epith Cells None seen (Few) /hpf Urine Bacteria None seen /hpf Urine Casts 0-2 Discharge Plan Discharge Clinical Impression: Multiple fractures of ribs, Acute hyponatremia Patient Disposition: Still a Patient Condition: Stable
[2024-07-04] MEDS: SODIUM CHLORIDE 0.9% IV 1,000 ML 100 ML IV CONT (13:47)
--- NOTE | 2024-07-04 14:05 | ADMGEN ---
This patient, Citlali Tyler, was admitted to Medical Room 257-. Patient/family oriented to hospital policies and general routines including ID bracelet, bed and alarms, visiting hours, pain management, procedures, bathroom and other care routines, personal items, smoking policy, room service/diet, and visiting hours. Information on how to activate the Rapid Response Team has been discussed. Patient/Family are encouraged to report perceived risks to care and to ask questions if they do not understand what they are told or what they should do.
[2024-07-04] MEDS: traMADol HCL (*CRX) 25 MG TABLET PO (17:21)
[2024-07-04 17:35] LABS: Anion Gap 5 mmol/L (4-12); Blood Urea Nitrogen 21 mg/dL (7-17); Calcium 9.1 mg/dL (8.4-10.2); Carbon Dioxide 28 mmol/L (22-30); Chloride 96 mmol/L (98-107); Creatine Kinase 69 U/L (30-135); Estimated CRCL calculation 48 ml/min; Estimated Glomerular Filt Rate > 60; Glucose 124 mg/dL (65-110); Magnesium 1.5 mg/dL (1.6-2.3); Potassium 4.4 mmol/L (3.4-5.0); Sodium 129 mmol/L (137-145)
[2024-07-04 17:49] LABS: Hemoglobin A1C 6.7 % (<5.7)
--- NOTE | 2024-07-04 19:00 | PM.IMHP ---
H&P: HPI History of Present Illness Date/Time: 07/04/24 20:00 Chief Complaint: Right side pain after fall. Narrative: This is a very pleasant 79-year-old female with coronary artery disease and history of stents, hypertension, hyperlipidemia, gastroesophageal reflux disease, hypothyroidism, type 2 diabetes mellitus, and depression who presented to the emergency department via private vehicle with complaints of right-sided pain after a fall. She seems to be a bit forgetful but is able to provide the following history. She lives in [place] and it is my understanding that she is here visiting her son. She presented today after a fall in which she fell onto her right side onto a coffee table. She tells me that her balance is poor and ?sometimes it feels like I am walking on waves or water.? This does not seem to be an acute problem and has been ongoing. In fact she had a fall down some steps while at [employer] recently and fractured her left clavicle. She does not ambulate with a cane or a walker and I do not think she would be able to do that at this time due to her clavicular fracture. She denies feelings of lightheadedness and dizziness prior to these episodes and she has not had any syncopal or near syncopal episodes. She is a diabetic but denies neuropathy. It is rare that she has episodes of hypoglycemia. She has not had any focal weakness, paresthesias, visual changes, facial droop, or difficulty speaking and swallowing. She also denies chest pain, palpitations, shortness of breath, cough, nausea, vomiting, diarrhea, and dysuria. At the time my evaluation she is resting comfortably after having received tramadol. She does endorse pleuritic pain with deep inspiration. In the ED: Vital signs were stable on arrival. Labs were significant for WBC count of 9.9, hemoglobin 11.1, sodium 128, potassium 5.3, chloride 95, BUN 24, creatinine 0.83, glucose 230, AST 91, ALT 77, CK 69. Urinalysis was positive for 1+ glucose, 3+ blood, greater than [address] showed no acute findings. CT of the chest, abdomen, and pelvis showed no evidence of vascular injury or acute cardiopulmonary, abdominal, or pelvic pathology. Fractures of the right 8, 9, 10th, and 11th ribs were noted. ED physician spoke with the on-call general surgeon who felt that the rib fractures could be monitored here without need to transfer for trauma. She is being admitted in this setting for close monitoring, hydration, correction of electrolyte abnormalities, and pain control as needed. Review of Systems Review of Systems: 12 systems were reviewed and are negative except for as per HPI. [facility] Past Medical History Medical History (Updated 07/04/24 @ 21:51 by Catina Talavera PA-C) Depression Type 2 diabetes mellitus Hypothyroidism Gastroesophageal reflux disease Hyperlipidemia Hypertension Coronary artery disease Surgical History Surgical History (Updated 07/04/24 @ 21:48 by Catina Talavera PA-C) History of hysterectomy History of colonoscopy with polypectomy History of coronary artery stent placement Social History Social History (Updated 07/04/24 @ 21:49 by Catina Talavera PA-C) Social History: Surrogate medical decision maker: Dean Tyler, [place] ([phone]). Code status: Full code. Smoking status: Never smoker Alcohol intake: former Substance use: never Substance use type: does not use Do You Feel Safe in your Home?: Yes Lack of Transportation: No Lack of Food: Never True Current Housing: I Have Housing Concerned About Future Housing: No Difficulty Paying Gas/Electric Bills: No Difficulty Paying for Meds: No Currently Unemployed: No Education: Decline to Answer Difficulty w/ Childcare or Family Care: No Spiritual care concerns: No Meds Home Medications and Allergies Home Medications ?Medication ?Instructions ?Recorded ?Confirmed ?Type amlodipine 5 mg tablet 5 mg PO QPM 07/04/24 07/04/24 History atorvastatin 20 mg tablet 20 mg PO QPM 07/04/24 07/04/24 History blood sugar diagnostic (FreeStyle 07/04/24 07/04/24 History Lite Strips) glimepiride 1 mg tablet 1 mg PO DAILY 07/04/24 07/04/24 History levothyroxine 50 mcg tablet 50 mcg PO QAM 07/04/24 07/04/24 History lisinopril 20 mg tablet 20 mg PO .daily HS 07/04/24 07/04/24 History metformin 1,000 mg tablet 250 mg PO BID 07/04/24 07/04/24 History metoprolol tartrate 25 mg tablet 25 mg PO BID 07/04/24 07/04/24 History sertraline 100 mg tablet 100 mg PO QAM 07/04/24 07/04/24 History Allergies Allergy/AdvReac Type Severity Reaction Status Date / Time No Known Allergies Allergy Verified 07/04/24 08:02 Vital Signs Vital Signs - 24 hr 07/04/24 08:19 07/04/24 08:22 07/04/24 08:25 Temperature Pulse Rate 74 72 75 Respiratory Rate 16 15 Blood Pressure 147/69 H 143/62 H 121/57 L Pulse Oximetry 100 99 Oxygen Delivery 07/04/24 08:26 07/04/24 08:27 07/04/24 08:27 Temperature Pulse Rate 73 70 76 Respiratory Rate 20 20 Blood Pressure 116/85 143/62 H 121/57 L Pulse Oximetry 98 98 Oxygen Delivery 07/04/24 08:28 07/04/24 08:31 07/04/24 08:45 Temperature Pulse Rate 74 72 74 Respiratory Rate 17 16 Blood Pressure 116/85 146/63 H Pulse Oximetry 100 Oxygen Delivery 07/04/24 09:00 07/04/24 09:24 07/04/24 09:30 Temperature Pulse Rate 73 77 Respiratory Rate 18 20 Blood Pressure Pulse Oximetry 97 96 97 Oxygen Delivery 07/04/24 09:45 07/04/24 10:00 07/04/24 10:15 Temperature Pulse Rate 71 72 74 Respiratory Rate 15 14 14 Blood Pressure Pulse Oximetry 98 98 98 Oxygen Delivery 07/04/24 10:30 07/04/24 10:53 07/04/24 11:04 Temperature 97.5 F L 97.8 F Pulse Rate 77 60 71 Respiratory Rate 15 20 15 Blood Pressure 136/66 120/68 Pulse Oximetry 97 99 96 Oxygen Delivery 07/04/24 11:46 07/04/24 12:30 07/04/24 12:31 Temperature 97.8 F 97.7 F 97.7 F Pulse Rate 82 72 73 Respiratory Rate 16 15 19 Blood Pressure 124/63 126/64 118/60 Pulse Oximetry 92 97 96 Oxygen Delivery 07/04/24 13:16 07/04/24 14:15 07/04/24 17:58 Temperature 97.8 F 98.8 F Pulse Rate 72 73 Respiratory Rate 19 17 Blood Pressure 124/70 122/44 L Pulse Oximetry 96 98 Oxygen Delivery Room Air Exam Narrative: General: Well-developed, nontoxic-appearing elderly female in the semi-Last position in bed in no acute distress. Weight: 72.7 kg. BMI: 25.7. HEENT: PERRL, EOMI. Sclera anicteric. Oral mucosa moist. Neck: Supple. No midline vertebral tenderness. Respiratory: Lungs are clear to auscultation bilaterally. Cardiovascular: Regular rate and rhythm with S1-S2. Chest: Bruising over the posterolateral right lower ribs. Gastrointestinal: Abdomen is soft, nontender, and nondistended with positive bowel sounds. Skin: Warm and dry. Extremities: No cyanosis, clubbing, or edema. Radial and pedal pulses intact. Neurological: Alert. Cranial nerves 2-12 are grossly intact. No gross focal deficits to casual conversation. Psychiatric: Pleasant and cooperative with normal mood and affect. Seems a bit forgetful. H&P: Results Labs Labs: Short CBC 07/04/24 Range/Units 08:39 WBC 9.9 (4.5-10.0) K/mm3 Hgb 11.1 L (12.0-15.0) g/dL Hct 34.0 L (37.0-47.0) % Plt Count 220 (150-375) k/mm3 BMP 07/04/24 07/04/24 08:39 17:19 Sodium 128 L 129 L Potassium 5.3 H 4.4 Chloride 95 L 96 L Carbon Dioxide 26 28 BUN 24 H 21 H Creatinine 0.83 0.79 Glucose 230 H 124 H Calcium 9.2 9.1 Cardiac Enzymes 07/04/24 Range/Units 17:19 Total Creatine Kinase 69 (30-135) U/L Liver Function 07/04/24 Range/Units 08:39 Total Bilirubin 0.7 (0.2-1.3) mg/dL AST 91 H (14-36) U/L ALT 77 H (6-35) U/L Alkaline Phosphatase 106 (38-126) U/L Albumin 4.3 (3.5-5.1) g/dL Urine 07/04/24 Range/Units 08:58 Urine Color Yellow (Yellow) Urine Appearance Clear (Clear) Urine pH 7.0 (5.0-9.0) Ur Specific [place] 1.021 (1.001-1.035) Urine Protein Trace (Negative) mg/dL Urine Glucose (UA) 1+ H (Negative) mg/dL Impressions Head CT 07/04/24 09:27 IMPRESSION: No acute intracranial findings. Chest X-Ray 07/04/24 09:47 IMPRESSION: No acute cardiopulmonary pathology. Blunting of the posterior costophrenic angle on the right side which may be due to minimal effusion or fibrotic changes. Chest/Abdomen/Pelvis CT 07/04/24 09:55 IMPRESSION: CHEST: 1. No evidence of vascular injury seen. 2. No acute cardiopulmonary pathology. 3. Bilateral multiple nodules. 6 months follow-up CT advised. 4. Precarinal and right hilar lymph nodes. 5. Fracture of the right eighth, ninth, 10th and 11th ribs. ABDOMEN/PELVIS: 1. No evidence of solid organ injury seen. 2. No evidence of appendicitis, diverticulitis or intestinal obstruction. 3. Gianluca hepatis lymphadenopathy. Assessment and Plan Assessment and plan (1) Right rib fracture: Code(s): S22.31XA - Fracture of one rib, right side, initial encounter for closed fracture Status: Acute (2) Electrolyte abnormality: Code(s): E87.8 - Other disorders of electrolyte and fluid balance, not elsewhere classified Status: Acute (3) Hematuria: Code(s): R31.9 - Hematuria, unspecified Status: Acute (4) Type 2 diabetes mellitus: Code(s): E11.9 - Type 2 diabetes mellitus without complications Status: Acute (5) Hypothyroidism: Code(s): E03.9 - Hypothyroidism, unspecified Status: Acute (6) Coronary artery disease: Code(s): I25.10 - Atherosclerotic heart disease of [place] coronary artery without angina pectoris Status: Acute (7) Hypertension: Code(s): I10 - Essential (primary) hypertension Status: Acute (8) Hyperlipidemia: Code(s): E78.5 - Hyperlipidemia, unspecified Status: Acute (9) Depression: Code(s): F32.A - Depression, unspecified Status: Acute Plan The patient presented to the emergency department with complaints of right-sided pain and hematuria after a ground level fall as detailed in HPI. Labs, imaging, EKG, and all reports were personally reviewed. CT of the chest, abdomen, and pelvis showed fractures of the right 8th, 9th, 10th, and 11th ribs with no other acute cardiopulmonary, abdominal, or pelvic processes. Analgesics are available as needed. Encourage hourly incentive spirometry use. Regarding hematuria, there were no findings on imaging to indicate underlying pathology. Check CK to rule out rhabdomyolysis as her AST and ALT are elevated. She has several electrolyte abnormalities including hyponatremia, hyperkalemia, and hypomagnesemia. She will be hydrated overnight and it is likely that her potassium will improve with fluids alone. Magnesium will be replaced and monitored. Hold metformin for now she received IV contrast. Initiate sliding scale insulin, Accu-Cheks, and hypoglycemic protocol. Continue levothyroxine and check TSH. Blood pressures were reviewed and they are stable. Initiate fall precautions and consult PT/OT. No acute issues with regards to her chronic medical conditions including coronary artery disease, hyperlipidemia, and depression. Her home medications will be reviewed and resumed as appropriate. Findings and treatment plan were discussed with the patient. Questions were solicited and answered to satisfaction. The patient's medical management will be taken over by the hospitalist team in a.m. Quality VTE Prophylaxis VTE prophylaxis: mechanical ordered If No VTE Prophylaxis Answer both mechanical and pharmacologic: Reason no pharmacologic proph: medical contraindication (fall risk) The patient has been admitted under observation status. Hospitalist [facility] Advance Care Plan I have confirmed that the patient's Advanced Care Plan is present, code status is documented, or surrogate decision maker is listed in patient medical record.: Yes Medication Reconciliation I have utilized all available resources to obtain, update and review the patients current medications (includes all prescriptions, OTC, herbals, cannabis, and nutritional supplements).: Yes
[2024-07-04] MEDS: MAGNESIUM SULF 2 GM/WATER 50ML 2 GM/50 ML BAG IVPB (22:32)
[2024-07-04] MEDS: SODIUM CHLORIDE 0.9% IV 1,000 ML 75 ML IV CONT (22:32)
[2024-07-05] VITALS (11 sets, daily range): BP systolic 130–166; BP diastolic 54–100; PULSE 65–83; RESP 14–20; TEMP 36.7–36.8; O2SAT 94–99
--- NOTE | 2024-07-05 | ECHO_ITS ---
Patient Info Name: Citlali Tyler Age: 79 years : 1945 Gender: Female Ht: 64 in Wt: 159 lbs BSA: 1.82 m2 HR: 74 bpm BP: 135 / 58 mmHg Heart Rhythm: Sinus Rhythm Technical Quality: Good Exam Date: 07/05/2024 1:26 PM Patient Status: I Admit Date: 07/05/2024 Exam Type: CA echo doppler color flow Complete two-dimensional, color flow and Doppler transthoracic echocardiogram is performed. Staff Referring Physician: Armida Sibley Sales Professional: Rae Locke Attending Provider: Freddy Menjivar MD Summary 1. Complete two-dimensional, color flow and Doppler transthoracic echocardiogram is performed. 2. The left ventricle is normal in size with hyperdynamic systolic function. The left ventricular ejection fraction is visually estimated to be greater than 70%. There is grade 2 diastolic dysfunction. 3. The right ventricle is normal in size and systolic function. 4. There is mild pulmonary hypertension. Left Ventricle The left ventricle is normal in size with hyperdynamic systolic function. The left ventricular ejection fraction is visually estimated to be greater than 70%. There is grade 2 diastolic dysfunction. Right Ventricle The right ventricle is normal in size and systolic function. Left Atria The left atrium is mildly dilated. Right Atria The right atrium is dilated. Atrial Septum The atrial septum visually appears intact. Aortic Valve The aortic valve is trileaflet and sclerotic but opens well. There is no aortic regurgitation. Pulmonic Valve The pulmonic valve is grossly normal. There is no color Doppler evidence of pulmonic valve regurgitation. Mitral Valve There is mitral annular calcification. The mitral valve leaflets are sclerotic but opens well. There is trace mitral regurgitation. Tricuspid Valve The tricuspid valve opens well. There is trace tricuspid regurgitation. Pulmonary Arteries Pulmonary arterial systolic pressure is estimated at 48 mmHg. There is mild pulmonary hypertension. Pericardium/Pleural Pericardium is normal in appearance with no evidence for significant pericardial effusion. Inferior Vena Cava Normal inferior vena cava with >50% collapse upon inspiration consistent with normal right atrial pressure, 3 mmHg. Aorta The aortic root at the level of the sinus of Valsalva measures 3.3 cm in diameter. Left Ventricular Outflow Tract Name Value Normal LVOT 2D LVOT Diameter 2.0 cm LVOT Doppler LVOT Peak Velocity 108 cm/s LVOT Peak Gradient 5 mmHg LVOT Mean Gradient 3 mmHg LVOT VTI 25 cm LVOT VTI/AV VTI Ratio 0.9 LVOT Stroke Volume 81 ml LVOT CO 5.4 l/min LVOT CI 3.0 l/min/m2 Pulmonic Valve Name Value Normal RVOT Doppler RVOT Peak Velocity 53 cm/s RVOT Peak Gradient 1 mmHg PV Doppler PV Peak Velocity 76 cm/s PV Peak Gradient 2 mmHg Mitral Valve Name Value Normal MV Diastolic Function MV E Peak Velocity 84 cm/s MV A Peak Velocity 103 cm/s MV E/A 0.8 MV Decel Time (PW) 215 ms MV Annular TDI MV E/e' (Septal) 12.3 MV E/e' (Lateral) 9.7 MV E/e' (Average) 11.0 Tricuspid Valve Name Value Normal TV Regurgitation Doppler TR Peak Velocity 336 cm/s TR Peak Gradient 45 mmHg Estimated PAP/RSVP RA Pressure 3 mmHg <=5 PA Systolic Pressure 48 mmHg <36 RV Systolic Pressure 48 mmHg <36 TV Annular TDI TV Lateral Tesha s' Velocity 10.3 cm/s >=9.5 Aortic Valve Name Value Normal AV Doppler AV Peak Velocity 136 cm/s AV Peak Gradient 7 mmHg AV Mean Gradient 3 mmHg AV VTI 28 cm AV Area (Cont Eq VTI) 2.8 cm2 >=3.0 AV Area (Cont Eq Bryant) 2.5 cm2 AV DI (Bryant) 0.79 AV Regurgitation 2D LVOT Area 3.2 cm2 Ventricles Name Value Normal LV Dimensions 2D/MM IVS Diastolic Thickness (2D) 1.1 cm 0.6-1.0 LVID Diastole (2D) 4.2 cm 3.8-5.2 LVIW Diastolic Thickness (2D) 0.9 cm 0.6-0.9 LVID Systole (2D) 2.7 cm 2.2-3.5 LVOT Diameter 2.0 cm LV Mass (2D Cubed) 139.12 g 67.00-162.00 LV Mass Index (2D Cubed) 76 g/m2 43-95 Relative Wall Thickness (2D) 0.45 <=0.42 LV Fractional Shortening/Ejection Fraction 2D/MM LV Fractional Shortening (2D) 35 % 27-45 LV EF (2D Teichholz) 65 % LV Diastolic Volume (4C MOD) 114 ml LV EF (4C MOD) 72 % LV Diastolic Volume (2C MOD) 94 ml LV EF (2C MOD) 73 % LV Diastolic Volume (BP MOD) 104 ml 46-106 LV Diastolic Volume Index (BP MOD) 57 ml/m2 29-61 LV Systolic Volume (BP MOD) 29 ml 14-42 LV Systolic Volume Index (BP MOD) 16 ml/m2 8-24 LV EF (BP MOD) 72 % 54-74 LV Diastolic Length (4C) 7.6 cm LV Systolic Length (4C) 6.1 cm LV Stroke Volume (4C MOD) 83 ml Atria Name Value Normal LA Dimensions LA Volume (4C A-L) 77 ml LA Volume (BP A-L) 69 ml RA Dimensions RA Systolic Major Olar Length (4C) 4.7 cm 2.2-2.8 RA Area (4C) 14.3 cm2 <=18.0 Report Signatures
[2024-07-05 04:59] LABS: Hematocrit 30.3 % (37.0-47.0); Mean Corpuscular Hemoglobin 30.2 pg (26-34); Mean Corpuscular Volume 91.5 fl (80-100); Mean Platelet Volume 9.4 fl (7.4-10.4); Platelet Count Result 199 k/mm3 (150-375); Red Blood Count 3.31 M/mm3 (4.2-5.4); Red Cell Distribution Width 13.8 % (11.5-14.5); White Blood Count 8.8 K/mm3 (4.5-10.0)
[2024-07-05 05:12] LABS: Alanine Aminotransferase 54 U/L (6-35); Albumin Level 3.7 g/dL (3.5-5.1); Alkaline Phosphatase 105 U/L (38-126); Anion Gap 4 mmol/L (4-12); Aspartate Amino Transferase 46 U/L (14-36); Bilirubin,Total 0.8 mg/dL (0.2-1.3); Blood Urea Nitrogen 16 mg/dL (7-17); Calcium 8.9 mg/dL (8.4-10.2); Carbon Dioxide 26 mmol/L (22-30); Chloride 97 mmol/L (98-107); Creatine Kinase 63 U/L (30-135); Estimated CRCL calculation 51 ml/min; Estimated Glomerular Filt Rate > 60; Glucose 163 mg/dL (65-110); Magnesium 1.9 mg/dL (1.6-2.3); Potassium 4.2 mmol/L (3.4-5.0); Sodium 127 mmol/L (137-145)
[2024-07-05] MEDS: LEVOTHYROXINE SODIUM 50 MCG TABLET PO (06:09)
[2024-07-05] MEDS: SERTRALINE HCL 50 MG TABLET 100 MG PO (08:20)
[2024-07-05] MEDS: METOPROLOL TARTRATE 25 MG TABLET PO ×2 (08:21→20:29)
--- NOTE | 2024-07-05 08:23 | P.PNIM_ITS ---
Progress Note: A&P Assessment and Plan (1) Syncope: Code(s): R55 - Syncope and collapse Status: Acute Assessment and Plan: Patient with multiple episodes of syncope with falls prior to this admission * Echo pending * carotids pending * Orthostatics positive * recommended compression stockings with ambulation (2) Right rib fracture: Code(s): S22.31XA - Fracture of one rib, right side, initial encounter for closed fracture Status: Acute Assessment and Plan: Patient had fall at home reported falling into a coffee table CTA showing rib fractures - * pain management with tramadol and lidocaine patch * encourage incentive spirometer * splinting with cough * monitor respiratory status currently on room air * oxygen p.r.n. to maintain 92% (3) Acute hyponatremia: Code(s): E87.1 - Hypo-osmolality and hyponatremia Status: Acute Assessment and Plan: Patient had presented with fall at home and trauma with rib fractures was found to have hyponatremia 128 did not improve with fluid challenge could be SIADH due to recent trauma and fractures patient also reported extreme stress after rec ently losing her * place on fluid restriction 1500 ML * NA follow-up 6 hours * neuro checks (4) Hematuria: Code(s): R31.9 - Hematuria, unspecified Status: Acute Assessment and Plan: patient reported some hematuria no diagnostic findings of cause (5) Type 2 diabetes mellitus: Code(s): E11.9 - Type 2 diabetes mellitus without complications Status: Acute Assessment and Plan: * Holding oral glimepiride and metformin * recommend D/C glimepiride due to report multiple episodes of hypoglycemia may be worsening her fall risk * SSI low dose * Accucheck ACHS * Diabetic diet (6) Hypothyroidism: Code(s): E03.9 - Hypothyroidism, unspecified Status: Acute Assessment and Plan: * Continue levothyroxine (7) Hypertension: Code(s): I10 - Essential (primary) hypertension Status: Acute Assessment and Plan: * resumed metoprolol (8) Hyperlipidemia: Code(s): E78.5 - Hyperlipidemia, unspecified Status: Acute Assessment and Plan: * continue atorvastatin (9) Depression: Code(s): F32.A - Depression, unspecified Status: Acute Assessment and Plan: * continue sertraline (10) Hypomagnesemia: Code(s): E83.42 - Hypomagnesemia Status: Acute Assessment and Plan: Mag 1.5 POA * 2 g IV PB * monitored replenish as needed Plan Code status: Full code per patient DVT prophylaxis: SCD's Stress ulcer prophylaxis: NA PT/OT notes: Pending Disposition: Patient was admitted for further evaluation and treatment of fall with rib fractures for pain management and observation as well as hyponatremia likely secondary to trauma. patient is from [place] visiting her son will likely discharge home with son. Time Spent With Patient Time with patient: 15 - 25 minutes Subjective Date/time seen: 07/05/24 08:23 Interval history: Patient is an 79-year-old female who presented to the emergency department after a traumatic fall into a coffee table she had complaints of pleuritic pain was found to have rib fractures on the right side [address]. patient was in no respiratory distress but did endorse moderate pain and some difficulty with inspiration. patient was also found to have hyponatremia she was admitted for further evaluation for hyponatremia and monitoring with Pain Management of rib fractures. 07/05/2024: Patient reported pain was better controlled today but still with moderate difficulty with inspiration remains on RA encourage Incentive spirometer. After speaking with patient and family she reports multiple episodes of dizziness, syncope with falls as well as episodes of hypoglycemia prior to admission. Review of Systems Review of Systems: All systems reviewed & are unremarkable except as noted in HPI and below Exam Narrative: General: NAD HEENT: Oral mucosa moist. Neck: Supple.No JVD Respiratory: Lungs are clear to auscultation bilaterally. pain with inspiration Cardiovascular: RRR Chest: Bruising over the posterolateral right lower ribs. Gastrointestinal: Abdomen is soft, nontender, and nondistended with positive bowel sounds. Skin: Warm and dry. Neurological: A&O x 3 Psychiatric: Pleasant and cooperative. Seems a bit forgetful. Objective Data Vital Signs Vital Signs: Vital Signs - 24 hr 07/04/24 08:25 07/04/24 08:26 07/04/24 08:27 Temperature Pulse Rate 75 73 70 Respiratory Rate 20 Blood Pressure 121/57 L 116/85 143/62 H Pulse Oximetry 98 Oxygen Delivery 07/04/24 08:27 07/04/24 08:28 07/04/24 08:31 Temperature Pulse Rate 76 74 72 Respiratory Rate 20 17 Blood Pressure 121/57 L 116/85 146/63 H Pulse Oximetry 98 100 Oxygen Delivery 07/04/24 08:45 07/04/24 09:00 07/04/24 09:24 Temperature Pulse Rate 74 73 Respiratory Rate 16 18 Blood Pressure Pulse Oximetry 97 96 Oxygen Delivery 07/04/24 09:30 07/04/24 09:45 07/04/24 10:00 Temperature Pulse Rate 77 71 72 Respiratory Rate 20 15 14 Blood Pressure Pulse Oximetry 97 98 98 Oxygen Delivery 07/04/24 10:15 07/04/24 10:30 07/04/24 10:53 Temperature 97.5 F L Pulse Rate 74 77 60 Respiratory Rate 14 15 20 Blood Pressure 136/66 Pulse Oximetry 98 97 99 Oxygen Delivery 07/04/24 11:04 07/04/24 11:46 07/04/24 12:30 Temperature 97.8 F 97.8 F 97.7 F Pulse Rate 71 82 72 Respiratory Rate 15 16 15 Blood Pressure 120/68 124/63 126/64 Pulse Oximetry 96 92 97 Oxygen Delivery 07/04/24 12:31 07/04/24 13:16 07/04/24 14:15 Temperature 97.7 F 97.8 F 98.8 F Pulse Rate 73 72 73 Respiratory Rate 19 19 17 Blood Pressure 118/60 124/70 122/44 L Pulse Oximetry 96 96 98 Oxygen Delivery 07/04/24 17:58 07/04/24 20:00 07/04/24 20:43 Temperature 98.7 F Pulse Rate 70 Respiratory Rate 16 Blood Pressure 131/62 Pulse Oximetry 95 Oxygen Delivery Room Air Room Air 07/05/24 05:26 Temperature 98.0 F Pulse Rate 65 Respiratory Rate 20 Blood Pressure 143/58 H Pulse Oximetry 95 Oxygen Delivery Intake/Output Intake/Output: Intake & Output 07/02/24 07/03/24 07/04/24 07/05/24 23:59 23:59 23:59 23:59 Intake Total 222 250 Output Total 20 100 Balance 202 150 Meds/Results Medications: Active Medications Generic Name Dose Route Start Last Admin Trade Name Freq PRN Reason Stop Dose Admin Acetaminophen 650 mg 07/04/24 17:07 Acetaminophen 325 Mg Tablet PO Q6H PRN Mild Pain (1-3) or Fever Amlodipine Besylate 5 mg 07/05/24 21:00 Amlodipine Besylate 5 Mg Tablet PO QHS JEFFREY Atorvastatin Calcium 20 mg 07/05/24 21:00 Atorvastatin 20 Mg Tablet PO QHS [facility] Dextrose 12.5 gm 07/04/24 21:56 Dextrose 50% 25 Gm/50 Ml Syringe IV PUSH PRN PRN Hypoglycemia Protocol Glucagon 1 mg 07/04/24 21:56 Glucagon For Inj 1 Mg Vial IM PRN PRN Hypoglycemia Protocol Glucose 15 gm 07/04/24 21:56 Glucose Oral Gel 15 Gm Of Glucse In 37.5 Gm Tube PO PRN PRN Hypoglycemia Protocol Dextrose 1,000 mls @ 100 mls/hr 07/04/24 21:56 Dextrose 5% 1,000 Ml IVPB PRN PRN Hypoglycemia Protocol Insulin Aspart 2 - 5 units 07/05/24 08:00 07/05/24 08:21 Insulin Aspart (*Bkc) 100 Units/Ml SUB-Q Not Given TIDWM JEFFREY Protocol Insulin Aspart 1 - 2 units 07/05/24 21:00 Insulin Aspart (*Bkc) 100 Units/Ml SUB-Q HS [facility] Protocol Levothyroxine Sodium 50 mcg 07/05/24 06:30 07/05/24 06:09 Levothyroxine Sodium 50 Mcg Tablet PO 50 mcg DAILY@0630 JEFFREY Administration Lidocaine 1 patch 07/05/24 09:00 Lidocaine 5% Patch TRANSDERM DAILY JEFFREY Lisinopril 20 mg 07/05/24 21:00 Lisinopril 20 Mg Tablet PO QHS JEFFREY Metoprolol Tartrate 25 mg 07/05/24 09:00 07/05/24 08:21 Metoprolol Tartrate 25 Mg Tablet PO 25 mg Q12HR JEFFREY Administration Sertraline HCl 100 mg 07/05/24 09:00 07/05/24 08:20 Sertraline Hcl 50 Mg Tablet PO 100 mg QAM JEFFREY Administration Tramadol HCl 25 mg 07/04/24 17:07 07/04/24 17:21 Tramadol Hcl (*Crx) 25 Mg Tablet PO 25 mg Q6H PRN Administration Pain Rated 4-6 Radiology Results: ITS Impressions Head CT 07/04/24 09:27 IMPRESSION: No acute intracranial findings. Chest/Abdomen/Pelvis CT 07/04/24 09:55 IMPRESSION: CHEST: 1. No evidence of vascular injury seen. 2. No acute cardiopulmonary pathology. 3. Bilateral multiple nodules. 6 months follow-up CT advised. 4. Precarinal and right hilar lymph nodes. 5. Fracture of the right eighth, ninth, 10th and 11th ribs. ABDOMEN/PELVIS: 1. No evidence of solid organ injury seen. 2. No evidence of appendicitis, diverticulitis or intestinal obstruction. 3. Gianluca hepatis lymphadenopathy. Chest X-Ray 07/05/24 07:46 IMPRESSION: 1. Elevation right hemidiaphragm. No acute cardiopulmonary disease. Labs Labs: Laboratory Results - last 24 hr 07/04/24 07/04/24 07/04/24 08:39 08:58 17:19 WBC 9.9 RBC 3.70 L Hgb 11.1 L Hct 34.0 L MCV 91.9 MCH 30.0 MCHC 32.6 RDW 13.9 Plt Count 220 MPV 9.0 Immature Gran % (Auto) 0.3 Neut % (Auto) 82.6 H Lymph % (Auto) 11.7 L Dickens % (Auto) 3.9 Eos % (Auto) 1.3 Baso % (Auto) 0.2 Lymph # (Auto) 1.16 Dickens # (Auto) 0.4 Eos # (Auto) 0.1 Baso # (Auto) 0.0 Abs Immat Gran (auto) 0.03 Absolute Neuts (auto) 8.2 H Absolute Nucleated RBC 0.000 Nucleated RBC % 0.0 Sodium 128 L 129 L Potassium 5.3 H 4.4 Chloride 95 L 96 L Carbon Dioxide 26 28 Anion Gap 7 5 BUN 24 H 21 H Creatinine 0.83 0.79 Estim Creat Clear Calc 46 48 Estimated GFR > 60 > 60 Glucose 230 H 124 H Hemoglobin A1c 6.7 H Calcium 9.2 9.1 Magnesium 1.5 L Total Bilirubin 0.7 AST 91 H ALT 77 H Alkaline Phosphatase 106 Total Creatine Kinase 69 Total Protein 7.0 Albumin 4.3 TSH (Reflex) 2.490 Urine Color Yellow Urine Appearance Clear Urine pH 7.0 Ur Specific [place] 1.021 Urine Protein Trace Urine Glucose (UA) 1+ H Urine Ketones Negative Ur Blood (Man) 3+ H Urine Nitrate Negative Urine Bilirubin Negative Urine Urobilinogen 1.0 Leukocyte Esterase Rfl Negative Urine RBC >100 H Urine WBC 0-5 Ur Squamous Epith Cells None seen Urine Bacteria None seen Urine Casts 0-2 07/05/24 04:20 WBC 8.8 RBC 3.31 L Hgb 10.0 L Hct 30.3 L MCV 91.5 MCH 30.2 MCHC 33.0 RDW 13.8 Plt Count 199 MPV 9.4 Immature Gran % (Auto) Neut % (Auto) Lymph % (Auto) Dickens % (Auto) Eos % (Auto) Baso % (Auto) Lymph # (Auto) Dickens # (Auto) Eos # (Auto) Baso # (Auto) Abs Immat Gran (auto) Absolute Neuts (auto) Absolute Nucleated RBC Nucleated RBC % Sodium 127 L Potassium 4.2 Chloride 97 L Carbon Dioxide 26 Anion Gap 4 BUN 16 Creatinine 0.75 Estim Creat Clear Calc 51 Estimated GFR > 60 Glucose 163 H Hemoglobin A1c Calcium 8.9 Magnesium 1.9 Total Bilirubin 0.8 AST 46 H ALT 54 H Alkaline Phosphatase 105 Total Creatine Kinase 63 Total Protein 6.0 L Albumin 3.7 TSH (Reflex) Urine Color Urine Appearance Urine pH Ur Specific [place] Urine Protein Urine Glucose (UA) Urine Ketones Ur Blood (Man) Urine Nitrate Urine Bilirubin Urine Urobilinogen Leukocyte Esterase Rfl Urine RBC Urine WBC Ur Squamous Epith Cells Urine Bacteria Urine Casts Quality VTE Prophylaxis VTE prophylaxis: mechanical ordered -Patient's previous records reviewed on admission -ER notes reviewed in detail on admission -discussed all findings and current treatment plan with patient/Family/POA -Consultations reviewed for recommendations -Patient's disposition for safe discharge discussed with family independence case manager Dictation performed by [employer] direct speech recognition software, 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 Hospitalist [facility] Advance Care Plan I have confirmed that the patient's Advanced Care Plan is present, code status is documented, or surrogate decision maker is listed in patient medical record.: Yes Medication Reconciliation I have utilized all available resources to obtain, update and review the patients current medications (includes all prescriptions, OTC, herbals, cannabis, and nutritional supplements).: Yes The patient is not eligible for med reconciliation; the patient is in a emergent medical situation where delaying treatment would jeopardize the patients health.: No
[2024-07-05 08:27] LABS: Glucose Point of Care 155 mg/dl (65-105)
[2024-07-05] MEDS: LIDOCAINE 5% PATCH 1 PATCH TRANSDERM (10:30)
--- NOTE | 2024-07-05 10:32 | P.CONGS_ITS ---
Assessment and Plan Assessment and plan (1) Multiple fractures of ribs: Qualifiers: Encounter type: initial encounter Fracture type: closed Laterality: r ight Qualified Code(s): S22.41XA - Multiple fractures of ribs, right side, initial encounter for closed fracture Code(s): S22.49XA - Multiple fractures of ribs, unspecified side, initial encounter for closed fracture Status: Acute Assessment and Plan: * I have reviewed the CT and x-rays and discussed the findings with the patient. She has multiple rib fractures but does not appear to have any internal organ injury. There is no sign of pneumothorax. No signs of flail chest or pulmonary contusion. Would recommend continued supportive care with pain control and incentive spirometry. No surgical follow-up necessary. Will sign off. (2) Fall from standing: Qualifiers: Encounter type: initial encounter Qualified Code(s): W19.XXXA - Unspecified fall, initial encounter Code(s): W19.XXXA - Unspecified fall, initial encounter Status: Acute Assessment and Plan: * Patient will need to be evaluated for steady gait and rule out other causes of frequent falls. (3) Acute hyponatremia: Code(s): E87.1 - Hypo-osmolality and hyponatremia Status: Acute Assessment and Plan: * Could be contributing to falls. Continue as per hospitalist. History of Present Illness Consult details Consult date: 07/05/24 Reason for consult: other (rib fracture) Requesting physician: Jevon Phillips III, DO Narrative: This is an 79-year-old woman who I am asked to see for multiple rib fractures. She presented to the ED yesterday with injury after a recent fall. A CT chest/abdomen/pelvis showed evidence of multiple nondisplaced rib fractures on the right side. There was no evidence of pneumothorax or abdominal organ injury. Her pain is well controlled and she denies any shortness of breath. She was admitted for hyponatremia and further treatment. Today she is resting comfortably. The right posterior ribcage area is tender to palpation but she does not complain of any significant pain at rest. Review of Systems 2 Review of Systems: All systems reviewed & are unremarkable except as noted in HPI and below Eyes: Eyes: Denies change in vision ENT: Denies hearing loss, Denies neck pain and Denies sore throat Cardiovascular: Cardiovascular: Denies chest pain and Denies dyspnea Respiratory: Respiratory: Denies cough, Denies dyspnea and Denies wheezing Genitourinary: Genitourinary: Denies hematuria and Denies dysuria Musculoskeletal: Musculoskeletal: Reports as per HPI, Denies arthralgias, Denies joint swelling and Denies neck pain Allergic/Immunologic: Allergic/Immunologic: Denies wheezing [facility] Past Medical History Medical History (Updated 07/05/24 @ 10:38 by Ronaldo Bryan, DO) Depression Type 2 diabetes mellitus Hypothyroidism Gastroesophageal reflux disease Hyperlipidemia Hypertension Coronary artery disease Surgical History Surgical History (Updated 07/04/24 @ 21:48 by Catina Talavera PA-C) History of hysterectomy History of colonoscopy with polypectomy History of coronary artery stent placement Social History Social History (Updated 07/04/24 @ 21:49 by Catina Talavera PA-C) Social History: Surrogate medical decision maker: Dean Tyler, allen ([phone]). Code status: Full code. Smoking status: Never smoker Alcohol intake: former Substance use: never Substance use type: does not use Do You Feel Safe in your Home?: Yes Lack of Transportation: No Lack of Food: Never True Current Housing: I Have Housing Concerned About Future Housing: No Difficulty Paying Gas/Electric Bills: No Difficulty Paying for Meds: No Currently Unemployed: No Education: Decline to Answer Difficulty w/ Childcare or Family Care: No Spiritual care concerns: No Meds Home Medications and Allergies Home Medications ?Medication ?Instructions ?Recorded ?Confirmed ?Type amlodipine 5 mg tablet 5 mg PO QPM 07/04/24 07/04/24 History atorvastatin 20 mg tablet 20 mg PO QPM 07/04/24 07/04/24 History blood sugar diagnostic (FreeStyle 07/04/24 07/04/24 History Lite Strips) glimepiride 1 mg tablet 1 mg PO DAILY 07/04/24 07/04/24 History levothyroxine 50 mcg tablet 50 mcg PO QAM 07/04/24 07/04/24 History lisinopril 20 mg tablet 20 mg PO .daily HS 07/04/24 07/04/24 History metformin 1,000 mg tablet 250 mg PO BID 07/04/24 07/04/24 History metoprolol tartrate 25 mg tablet 25 mg PO BID 07/04/24 07/04/24 History sertraline 100 mg tablet 100 mg PO QAM 07/04/24 07/04/24 History Allergies Allergy/AdvReac Type Severity Reaction Status Date / Time No Known Allergies Allergy Verified 07/04/24 08:02 Vital Signs Vital Signs - 24 hr 07/04/24 10:53 07/04/24 11:04 07/04/24 11:46 Temperature 97.5 F L 97.8 F 97.8 F Pulse Rate 60 71 82 Respiratory Rate 20 15 16 Blood Pressure 136/66 120/68 124/63 Pulse Oximetry 99 96 92 Oxygen Delivery 07/04/24 12:30 07/04/24 12:31 07/04/24 13:16 Temperature 97.7 F 97.7 F 97.8 F Pulse Rate 72 73 72 Respiratory Rate 15 19 19 Blood Pressure 126/64 118/60 124/70 Pulse Oximetry 97 96 96 Oxygen Delivery 07/04/24 14:15 07/04/24 17:58 07/04/24 20:00 Temperature 98.8 F Pulse Rate 73 Respiratory Rate 17 Blood Pressure 122/44 L Pulse Oximetry 98 Oxygen Delivery Room Air Room Air 07/04/24 20:43 07/05/24 05:26 Temperature 98.7 F 98.0 F Pulse Rate 70 65 Respiratory Rate 16 20 Blood Pressure 131/62 143/58 H Pulse Oximetry 95 95 Oxygen Delivery Exam 2 Const: General: alert; No acute distress Orientation/consciousness: patient oriented x3 Limitations: no limitations HENMT: Head: normocephalic and atraumatic Ears: hearing grossly normal bilaterally Face/Nose/Sinus: Normal external nose present and Normal nares present Mouth: Yes Normal oral and palatal mucosa present and Yes moist mucous membranes Eyes: General: appearance normal, both eyes and all related structures C onjunctivae: conjunctivae normal Sclera: sclerae normal Pupils: Equal, round and reactive pupils present EOM: EOMs intact bilaterally Neck: Neck: normal visual inspection, full ROM, no lymphadenopathy, supple and no JVD Lymphatic: no lymphadenopathy noted Chest: Chest palpation & inspection: normal inspection of the chest Other: Tenderness to palpation over the right lateral and posterior lower chest wall. No palpable crepitus. Resp: Effort & Inspection: normal respiratory effort and able to speak in complete sentences Auscultation: clear to auscultation bilaterally P ercussion: percussion normal Cardio: Jugular venous distension: no JVD Rate: regular rate Rhythm: r egular rhythm Heart sounds: S1 normal heart sound present and S2 normal heart sound present Peripheral pulses: Peripheral pulses 2+ throughout GI: Inspection: normal to inspection Auscultation: normal bowel sounds : General: Yes no CVA tenderness Back/Spine/Pelvis: Back: no CVA tenderness Skin: General skin exam: normal color and dry skin Neuro: General: patient oriented x3, gait normal, moves all extremities, no focal motor deficits and CN's II-XI intact bilaterally Cranial nerves: Yes Equal, round and reactive pupils present Speech: normal speech Extrem: General: normal to inspection and capillary refill normal Results Labs 07/05/24 04:20 07/05/24 04:20 Labs: Abnormal lab results 07/04/24 07/05/24 07/05/24 Range/Units 17:19 04:20 08:17 RBC 3.31 L (4.2-5.4) M/mm3 Hgb 10.0 L (12.0-15.0) g/dL Hct 30.3 L (37.0-47.0) % Sodium 129 L 127 L (137-145) mmol/L Chloride 96 L 97 L (98-107) mmol/L BUN 21 H (7-17) mg/dL Glucose 124 H 163 H (65-110) mg/dL POC Capillary Glucose 155 H (65-105) mg/dl Hemoglobin A1c 6.7 H (<5.7) % Magnesium 1.5 L (1.6-2.3) mg/dL AST 46 H (14-36) U/L ALT 54 H (6-35) U/L Total Protein 6.0 L (6.3-8.2) g/dL Diabetes panel 07/04/24 07/05/24 Range/Units 17:19 04:20 Sodium 129 L 127 L (137-145) mmol/L Potassium 4.4 4.2 (3.4-5.0) mmol/L Chloride 96 L 97 L (98-107) mmol/L Carbon Dioxide 28 26 (22-30) mmol/L BUN 21 H 16 (7-17) mg/dL Creatinine 0.79 0.75 (0.7-1.0) mg/dL Glucose 124 H 163 H (65-110) mg/dL Hemoglobin A1c 6.7 H (<5.7) % Calcium 9.1 8.9 (8.4-10.2) mg/dL AST 46 H (14-36) U/L ALT 54 H (6-35) U/L Alkaline Phosphatase 105 (38-126) U/L Total Protein 6.0 L (6.3-8.2) g/dL Albumin 3.7 (3.5-5.1) g/dL Calcium panel 07/04/24 07/05/24 Range/Units 17:19 04:20 Calcium 9.1 8.9 (8.4-10.2) mg/dL Albumin 3.7 (3.5-5.1) g/dL Pituitary panel 07/04/24 07/05/24 Range/Units 17:19 04:20 Sodium 129 L 127 L (137-145) mmol/L Potassium 4.4 4.2 (3.4-5.0) mmol/L Chloride 96 L 97 L (98-107) mmol/L Carbon Dioxide 28 26 (22-30) mmol/L BUN 21 H 16 (7-17) mg/dL Creatinine 0.79 0.75 (0.7-1.0) mg/dL Glucose 124 H 163 H (65-110) mg/dL Calcium 9.1 8.9 (8.4-10.2) mg/dL Adrenal panel 07/04/24 07/05/24 Range/Units 17:19 04:20 Sodium 129 L 127 L (137-145) mmol/L Potassium 4.4 4.2 (3.4-5.0) mmol/L Chloride 96 L 97 L (98-107) mmol/L Carbon Dioxide 28 26 (22-30) mmol/L BUN 21 H 16 (7-17) mg/dL Creatinine 0.79 0.75 (0.7-1.0) mg/dL Glucose 124 H 163 H (65-110) mg/dL Calcium 9.1 8.9 (8.4-10.2) mg/dL Total Bilirubin 0.8 (0.2-1.3) mg/dL AST 46 H (14-36) U/L ALT 54 H (6-35) U/L Alkaline Phosphatase 105 (38-126) U/L Total Protein 6.0 L (6.3-8.2) g/dL Albumin 3.7 (3.5-5.1) g/dL All other labs normal. Imaging Additional studies: ITS Impressions Head CT 07/04/24 09:27 IMPRESSION: No acute intracranial findings. Chest X-Ray 07/04/24 09:47 IMPRESSION: No acute cardiopulmonary pathology. Blunting of the posterior costophrenic angle on the right side which may be due to minimal effusion or fibrotic changes. Chest/Abdomen/Pelvis CT 07/04/24 09:55 IMPRESSION: CHEST: 1. No evidence of vascular injury seen. 2. No acute cardiopulmonary pathology. 3. Bilateral multiple nodules. 6 months follow-up CT advised. 4. Precarinal and right hilar lymph nodes. 5. Fracture of the right eighth, ninth, 10th and 11th ribs. ABDOMEN/PELVIS: 1. No evidence of solid organ injury seen. 2. No evidence of appendicitis, diverticulitis or intestinal obstruction. 3. Gianluca hepatis lymphadenopathy. Chest X-Ray 07/05/24 07:46 IMPRESSION: 1. Elevation right hemidiaphragm. No acute cardiopulmonary disease.
[2024-07-05 12:05] LABS: Glucose Point of Care 134 mg/dl (65-105)
[2024-07-05 13:10] LABS: Anion Gap 7 mmol/L (4-12); Blood Urea Nitrogen 14 mg/dL (7-17); Calcium 8.9 mg/dL (8.4-10.2); Carbon Dioxide 25 mmol/L (22-30); Chloride 95 mmol/L (98-107); Estimated CRCL calculation 50 ml/min; Estimated Glomerular Filt Rate > 60; Glucose 200 mg/dL (65-110); Potassium 4.2 mmol/L (3.4-5.0); Sodium 127 mmol/L (137-145)
[2024-07-05 17:02] LABS: Glucose Point of Care 168 mg/dl (65-105)
[2024-07-05] MEDS: INSULIN ASPART (*BKC) 100 UNITS/ML SUB-Q (20:25)
[2024-07-05] MEDS: amLODIPine BESYLATE 5 MG TABLET PO (20:28)
[2024-07-05] MEDS: ATORVASTATIN 20 MG TABLET PO (20:28)
[2024-07-05] MEDS: lisinopriL 20 MG TABLET PO (20:28)
[2024-07-05 21:36] LABS: Glucose Point of Care 248 mg/dl (65-105)
[2024-07-05] MEDS: traMADol HCL (*CRX) 25 MG TABLET PO (23:57)
[2024-07-06 05:14] VITALS: BP 167/62; PULSE 70; RESP 20; TEMP 36.3; O2SAT 97
[2024-07-06 05:23] LABS: Hematocrit 31.2 % (37.0-47.0); Hemoglobin 10.2 g/dL (12.0-15.0); Mean Corpuscular HGB Conc 32.7 g/dl (32-36); Mean Corpuscular Hemoglobin 30.4 pg (26-34); Mean Corpuscular Volume 92.9 fl (80-100); Mean Platelet Volume 9.4 fl (7.4-10.4); Platelet Count Result 189 k/mm3 (150-375); Red Blood Count 3.36 M/mm3 (4.2-5.4); Red Cell Distribution Width 13.7 % (11.5-14.5); White Blood Count 7.4 K/mm3 (4.5-10.0)
[2024-07-06 05:38] LABS: Alanine Aminotransferase 43 U/L (6-35); Albumin Level 3.8 g/dL (3.5-5.1); Alkaline Phosphatase 97 U/L (38-126); Anion Gap 4 mmol/L (4-12); Aspartate Amino Transferase 37 U/L (14-36); Bilirubin,Total 0.9 mg/dL (0.2-1.3); Blood Urea Nitrogen 14 mg/dL (7-17); Calcium 9.2 mg/dL (8.4-10.2); Carbon Dioxide 28 mmol/L (22-30); Chloride 95 mmol/L (98-107); Estimated CRCL calculation 52 ml/min; Estimated Glomerular Filt Rate > 60; Glucose 170 mg/dL (65-110); Potassium 4.4 mmol/L (3.4-5.0); Sodium 127 mmol/L (137-145)
[2024-07-06] MEDS: LEVOTHYROXINE SODIUM 50 MCG TABLET PO (05:59)
[2024-07-06] MEDS: traMADol HCL (*CRX) 25 MG TABLET PO (06:03)
[2024-07-06 08:04] LABS: Glucose Point of Care 190 mg/dl (65-105)
--- NOTE | 2024-07-06 08:17 | P.DS_ITS ---
DS: Admitting Diagnosis Discharge Date 07/06/2024 Admitting Diagnosis Fall/Syncope/Rib fractures DS: Discharge Diagnosis Discharge Diagnosis (1) Syncope: Code(s): R55 - Syncope and collapse Status: Acute (2) Right rib fracture: Code(s): S22.31XA - Fracture of one rib, right side, initial encounter for closed fracture Status: Acute (3) Acute hyponatremia: Code(s): E87.1 - Hypo-osmolality and hyponatremia Status: Acute (4) Hematuria: Code(s): R31.9 - Hematuria, unspecified Status: Acute (5) Type 2 diabetes mellitus: Code(s): E11.9 - Type 2 diabetes mellitus without complications Status: Acute (6) Hypothyroidism: Code(s): E03.9 - Hypothyroidism, unspecified Status: Acute (7) Hypertension: Code(s): I10 - Essential (primary) hypertension Status: Acute (8) Hyperlipidemia: Code(s): E78.5 - Hyperlipidemia, unspecified Status: Acute (9) Depression: Code(s): F32.A - Depression, unspecified Status: Acute (10) Hypomagnesemia: Code(s): E83.42 - Hypomagnesemia Status: Acute DS: Summary Hospital Course Reason for hospitalization: Fall/Syncope/Rib fracture/Hyponatremia Hospital Course: Patient was a 79-year-old female with coronary artery disease and history of stents, hypertension, hyperlipidemia, gastroesophageal reflux disease, hypothyroidism, type 2 diabetes mellitus, and depression who presented to the emergency department via private vehicle with complaints of right-sided pain after a fall. She was here visiting her son. She presented today after a fall in which she fell onto her right side onto a coffee table. She tells me that her balance is poor and ?sometimes it feels like I am walking on waves or water.? This does not seem to be an acute problem and has been ongoing. In fact she had a fall down some steps while at [employer] recently and fractured her left clavicle. She does not ambulate with a cane or a walker and I do not think she would be able to do that at this time due to her clavicular fracture. She denied feelings of lightheadedness and dizziness prior to these episodes and she has not had any syncopal or near syncopal episodes. She is a diabetic but denies neuropathy. It is rare that she has episodes of hypoglycemia. She has not had any focal weakness, paresthesias, visual changes, facial droop, or difficulty speaking and swallowing. She also denies chest pain, palpitations, shortness of breath, cough, nausea, vomiting, diarrhea, and dysuria. At the time my evaluation she is resting comfortably after having received tramadol. She does endorse pleuritic pain with deep inspiration. In the ED: Vital signs were stable on arrival. Labs were significant for WBC count of 9.9, hemoglobin 11.1, sodium 128, potassium 5.3, chloride 95, BUN 24, creatinine 0.83, glucose 230, AST 91, ALT 77, CK 69. Urinalysis was positive for 1+ glucose, 3+ blood, greater than [address] showed no acute findings. CT of the chest, abdomen, and pelvis showed no evidence of vascular injury or acute cardiopulmonary, abdominal, or pelvic pathology. Fractures of the right 8, 9, 10th, and 11th ribs were noted. ED physician spoke with the on-call general surgeon who felt that the rib fractures could be monitored here without need to transfer for trauma. Hospital Course: Patient was admitted for pain management of rib factures and hyponatremia Patient with multiple episodes of syncope with falls prior to this admission reported from patient and family Echo showing diastolic II dysfunction LVEF 60- 65 %, carotids with no stenosis but was Orthostatics positive which I recommended compression stockings with ambulation (2) Right rib fracture: Patient had fall at home reported falling into a coffee table CTA showing rib fractures 8th-11th continued on pain management with tramadol and lidocaine patch, encourage incentive spirometer, recommended splinting with cough remained on room air (3) Acute hyponatremia: Patient had presented with fall at home and trauma with rib fractures was found to have hyponatremia 128 did not improve with fluid challenge could be SIADH due to recent trauma and fractures patient also reported extreme stress after recently losing her , place on fluid restriction 1500 ML. Sodium remained at 127 with no neurological deficits was discharged on fluid restriction, sodium chloride tablets with follow up BMP in 1 week likely SIADH (5) Type 2 diabetes mellitus: Patient reported multiple episodes of hypoglycemia at home Discontinued her oral glimepiride and started on Jardiance and continued metformin. Discharged on diabetic diet and follow-up with PCP for follow-up A1C. Patient with overall improvement and pain managed She was discharged to home with family with medication changes and plans for follow up labs with primary care physician in 1 week. Patient seen and assessed day of discharge in no acute distress or other complaints. Patient and family acknowledged and agreed with discharge plan. Status at Discharge Functional status at discharge: independent ambulation Overall status at discharge: patient is progressing back to baseline Time Spent with Patient Time attestation: Total time spent providing and/or coordinating discharge services: Time spent: Greater than 30 minutes Exam Narrative: General: NAD HEENT: Oral mucosa moist. Neck: Supple.No JVD Respiratory: Lungs are clear to auscultation bilaterally. pain with inspiration Cardiovascular: RRR Chest: Bruising over the posterolateral right lower ribs. Gastrointestinal: Abdomen is soft, nontender, and nondistended with positive bowel sounds. Skin: Warm and dry. Neurological: A&O x 3 Psychiatric: Pleasant and cooperative. Seems a bit forgetful. DS: Data Data Completed and Pending Labs on day of discharge: Labs from last 24 hours 07/06/24 07/06/24 07/05/24 07:58 04:52 19:59 WBC 7.4 RBC 3.36 L Hgb 10.2 L Hct 31.2 L MCV 92.9 MCH 30.4 MCHC 32.7 RDW 13.7 Plt Count 189 MPV 9.4 Sodium 127 L Potassium 4.4 Chloride 95 L Carbon Dioxide 28 Anion Gap 4 BUN 14 Creatinine 0.73 Estim Creat Clear Calc 52 Estimated GFR > 60 Glucose 170 H POC Capillary Glucose 190 H 248 H Calcium 9.2 Total Bilirubin 0.9 AST 37 H ALT 43 H Alkaline Phosphatase 97 Total Protein 7.0 Albumin 3.8 07/05/24 07/05/24 07/05/24 16:50 12:56 11:58 WBC RBC Hgb Hct MCV MCH MCHC RDW Plt Count MPV Sodium 127 L Potassium 4.2 Chloride 95 L Carbon Dioxide 25 Anion Gap 7 BUN 14 Creatinine 0.75 Estim Creat Clear Calc 50 Estimated GFR > 60 Glucose 200 H POC Capillary Glucose 168 H 134 H Calcium 8.9 Total Bilirubin AST ALT Alkaline Phosphatase Total Protein Albumin 07/05/24 08:17 WBC RBC Hgb Hct MCV MCH MCHC RDW Plt Count MPV Sodium Potassium Chloride Carbon Dioxide Anion Gap BUN Creatinine Estim Creat Clear Calc Estimated GFR Glucose POC Capillary Glucose 155 H Calcium Total Bilirubin AST ALT Alkaline Phosphatase Total Protein Albumin Imaging Radiologist's impression: Radiology Results: ITS Impressions Head CT 07/04/24 09:27 IMPRESSION: No acute intracranial findings. Chest/Abdomen/Pelvis CT 07/04/24 09:55 IMPRESSION: CHEST: 1. No evidence of vascular injury seen. 2. No acute cardiopulmonary pathology. 3. Bilateral multiple nodules. 6 months follow-up CT advised. 4. Precarinal and right hilar lymph nodes. 5. Fracture of the right eighth, ninth, 10th and 11th ribs. ABDOMEN/PELVIS: 1. No evidence of solid organ injury seen. 2. No evidence of appendicitis, diverticulitis or intestinal obstruction. 3. Gianluca hepatis lymphadenopathy. Chest X-Ray 07/05/24 07:46 IMPRESSION: 1. Elevation right hemidiaphragm. No acute cardiopulmonary disease. Discharge Plan Discharge Attending physician on discharge: Freddy Menjivar Consulting providers: Armida Sibley Discharging Clinician: Armida Sibley Anticipated Discharge Date/Time: 07/06/24 07:39 Patient Disposition: Home Activity: may shower, as tolerated and other - see discharge instructions Diet: diabetic and other - see discharge instructions Discharge Instructions: 1). Hyponatremia (low Sodium) SIADH * Continue with fluid restriction between 1500-1800ML daily of oral liquid intake * I have started you on a Sodium chloride tablet daily to increase your sodium * I have included a follow-up lab order to re-assess your sodium levels in one week 2). Falls/Syncope/Orthostatic hypotension * I performed a echocardiogram which did show diastolic grade 2 dysfunction follow-up with your primary or application infrastructure engineer * I also performed a carotid study which showed no stenosis * We performed orthostatic hypotension at which time your blood pressure did drop over 20 points sepsis likely secondary to SIADH I recommend compression stockings when ambulating may remove at rest. I also recommend slow rising from any lying or seated position. 3). Rib fractures * You do have multiple rib fractures on the right side I have prescribed oral pain medication as well as lidocaine patch please do not drive or operate heavy machinery while taking pain medication. * Please continue to use your incentive spirometer those with for fractures generally do not take deep inspiration breaths and can lead to pneumonia this will help reduce the chances * If there is a need to cough I do recommend having a pillow nearby to splint * If you developed increased shortness of breath, chest pain or respiratory distress to seek immediate medical attention 4.) Diabetes * After reporting multiple episodes of hypoglycemia which can lead to falls and syncopal episodes I have recommended to stop your glimepiride * In the place of glimepiride I have added Jardiance 10 mg daily * Your A1c was 6.7 I recommended a follow-up A1c in 3 months * With change in medication I do recommend monitoring blood sugars 3 times a day report to your primary if you experience blood pressures continuously greater than 200 or hypoglycemic events (low blood sugars). 5). Hypomagnesemia * I have prescribed mag-oxide daily please take as indicated There was multiple bilateral nodules noted on your CT scan please have a 6-month follow-up CT chest scan for follow-up How can you care for yourself at home? ? Keep track of any new symptoms or changes in your symptoms. ? Rest until you feel better. ? Be safe with medicines. Take your medicines exactly as prescribed. Call your doctor if you think you are having a problem with your medicine. ? Do not drive after taking a prescription pain medicine. ? Ensure to follow-up with primary care physician as indicated and provide updated medication list provided to you at discharge. When should you call for help? Call 911 anytime you think you may need emergency care. For example, call if: ? You passed out (lost consciousness). Call your doctor now or seek immediate medical care if: ? You have new symptoms like fever, difficulty breathing, Chest pain, vomiting, or rash. ? You have new or different pain. ? You are confused and are having trouble thinking clearly. ? Your symptoms are getting worse. Watch closely for changes in your health, and be sure to contact your doctor if: ? You do not get better as expected. Patient Instructions: Antibiotic Form, Rib Fracture (DC), Hyponatremia (DC), Hypoglycemia in a Person with Diabetes (DC), Syndrome of Inappropriate Antidiuretic Hormone Secretion (DC), Hypotension (DC), Near Syncope (DC), Type 2 Diabetes in the Older Adult (DC), Diabetes and Nutrition (DC) Patient Language: Tongan Stand Alone Forms: General Discharge Information Follow-up/Referrals: Tolu Arndt [Other] - 1 Week (Follow-up with A1c and Sodium) Discharge Medications: New magnesium oxide 400 mg (241.3 mg magnesium) Tablet 400 mg PO DAILY Qty: 30 0RF lidocaine [Lidoderm] 5 % Adhesive Patch,Medicated 1 patch transdermal DAILY Qty: 30 0RF sodium chloride 1,000 mg Tablet,Soluble 1,000 mg PO QAM Qty: 30 0RF Jardiance 10 mg Tablet 10 mg PO DAILY Qty: 30 0RF tramadol 25 mg tablet 25 mg PO Q6H PRN (Reason: pain) Qty: 30 0RF Continued metformin 1,000 mg tablet 250 mg PO BID metoprolol tartrate 25 mg tablet 25 mg PO BID lisinopril 20 mg tablet 20 mg PO .daily HS levothyroxine 50 mcg tablet 50 mcg PO QAM atorvastatin 20 mg tablet 20 mg PO QPM (DME) FreeStyle Lite Strips Strip MISCELLANEOUS amlodipine 5 mg tablet 5 mg PO QPM sertraline 100 mg tablet 100 mg PO QAM Discontinued glimepiride 1 mg tablet 1 mg PO DAILY Other Ambulatory Orders: Basic Metabolic Panel (Routine) Timeframe: 1 Week Location: Determined by Patient Ordered By: Armida Sibley Date of admission: 07/05/24 14:26 Primary Care Provider: Tolu Arndt Admitting Provider: Freddy Menjivar Attending physician on admission: Freddy Menjivar Condition: Stable Quality VTE Prophylaxis VTE prophylaxis: mechanical ordered -Patient's previous records reviewed on admission -ER notes reviewed in detail on admission -discussed all findings and current treatment plan with patient/Family/POA -Consultations reviewed for recommendations -Patient's disposition for safe discharge discussed with correctional case manager Dictation performed by [employer] direct speech recognition software, therefore hose seamer variants and typographical errors may occur. Hospitalist MIPS Heart Failure (Exclusion) Patient has history of Heart Transplant or Left Ventricular Assistive Device?: No IF YES, STOP HERE Heart Failure (Qualifier) Patient has current or prior documentation of LVEF less than or equal to 40%, or mod/servere depressed LVSF?: No IF NO, STOP HERE
[2024-07-06] MEDS: SERTRALINE HCL 50 MG TABLET 100 MG PO (09:31)
[2024-07-06] MEDS: EMPAGLIFLOZIN 10 MG TABLET PO (09:31)
[2024-07-06] MEDS: MAGNESIUM OXIDE 400 MG TABLET PO (09:31)
[2024-07-06] MEDS: LIDOCAINE 5% PATCH 1 PATCH TRANSDERM (09:31)
[2024-07-06] MEDS: METOPROLOL TARTRATE 25 MG TABLET PO (09:31)
[2024-07-06] MEDS: SODIUM CHLORIDE 1 GM TABLET PO (09:31)
--- NOTE | 2024-07-06 10:07 | PC.NURSE ---
Discharge instructions explained to patient and family at bedside. No questions or concerns at this time. IV removed. [facility] sent to [facility] in [place]. Patient taken to car via wheelchair.
== END 2024-07-06 10:10 | disposition home or self-care (01) | DRG 184 ==
LOC: ANHED 13:18 → ANH2MED 13:49
PROVIDERS: Physician Assistant; Admitting Provider Family Medicine; Emergency Provider Emergency Medicine; Visit Provider Nurse Practitioner Family
DX: S22.41XA Multiple fractures of ribs, right side, initial encounter for closed fracture (principal); E87.1 Hypo-osmolality and hyponatremia; I25.10 Atherosclerotic heart disease of native coronary artery without angina pectoris; I10 Essential (primary) hypertension; E78.5 Hyperlipidemia, unspecified; E03.9 Hypothyroidism, unspecified; E11.9 Type 2 diabetes mellitus without complications; E83.42 Hypomagnesemia; E87.5 Hyperkalemia; K21.9 Gastro-esophageal reflux disease without esophagitis; R55 Syncope and collapse; R31.9 Hematuria, unspecified; R29.6 Repeated falls; F32.A Depression, unspecified; W01.190A Fall on same level from slipping, tripping and stumbling with subsequent striking against furniture, initial encounter; Z95.5 Presence of coronary angioplasty implant and graft
CPT/HCPCS: 36415; 70450; 71045; 71046; 71260; 74177; 80048; 80053; 81001; 82550; 82948; 83036; 83735; 84443; 85025; 85027; 93005; 93306; 93880; 96361; 96374; 99285; A9270; G0378; J1815; J3475; J7030; Q9967